=== PATIENT | male | born 1965 | race Caucasian/White ===

== ENCOUNTER 2020-04-27 07:18 | Inpatient (IN) ==
[2020-04-27] MEDS ORDERED: DEXTROSE 50% 25 GM/50 ML VIAL IV PRN ×2 (09:20)
[2020-04-27] MEDS ORDERED: GLUCAGON 1 MG VIAL IM PRN ×2 (09:20)
[2020-04-27 09:57] LABS: Basophils # 0.1 10*3/uL (0.0-0.2); Basophils % 0.9 % (0.0-0.8); Eosinophils # 0.4 10*3/uL (0.0-0.87); Eosinophils % 4.1 % (0.00-10.9); Hematocrit 44.4 VOL% (42.0-52.0); Hemoglobin 14.5 GM/DL (14.0-18.0); Immature Granulocytes % 0.9 %; Immature Granulocytes Absolute 0.09 #; Lymphocytes # 1.5 10*3/uL (1.4-4.0); Lymphocytes % 15.5 % (21.2-54.2); Mean Corpuscular HGB Conc 32.7 GM/DL (32-36); Mean Corpuscular Volume 89.5 FL (87-102); Mean Platelet Volume 12.2 FL (9.6-12.0); Monocytes % 6.8 % (1.7-12.7); Neutrophils % 71.8 % (38.7-73.9); Platelet Count 204 T/CUMM (130-400); Red Blood Count 4.96 MC/CUMM (3.8-5.5); Red Cell Distribution Width 13.1 % (9.3-17.3); White Blood Count 9.7 T/CUMM (4-12)
[2020-04-27] MEDS ORDERED: CLORAZEPATE 3.75 MG TABLET PO PRN (10:20)
[2020-04-27] MEDS ORDERED: NITROGLYCERIN SL 0.4 MG TABLET SL PRN (10:20)
[2020-04-27] MEDS ORDERED: MORPHINE 4 MG/1 ML VIAL IV PRN (10:20)
[2020-04-27 10:23] LABS: Albumin 2.6 G/DL (3.4-5.0); Bilirubin,Total 0.4 MG/DL (0.2-1.0); Calcium 8.2 MG/DL (8.5-10.1); Osmolality,Calculated 286.4 MOS/KG (273-304); Total Protein 6.1 G/DL (6.4-8.2)
[2020-04-27 10:59] LABS: ABG Base Excess 0.3 MMOL/L (-2.5-2.5); ABG HCO3 24.7 MMOL/L (20-26); ABG Oxygen Saturation 96.5 % (95-100); ABG PCO2 41.6 MM HG (35-48); ABG PH 7.393 (7.35-7.45); ABG PO2 86.4 MM HG (80-95); ABG TCO2 21.8 MMOL/L (23-27); Allen Test Positive; Pt O2 Delivery Device Room Air
[2020-04-27] MEDS ORDERED: hydrALAZINE 20 MG/1 ML VIAL IV PRN (13:37)
[2020-04-27] MEDS ORDERED: ZALEPLON 5 MG CAPSULE PO PRN (13:38)
[2020-04-27] MEDS: CHLORHEXIDINE 4% SOLN 118 ML BOTTLE TOP SCH ×2 (14:13→20:53)
[2020-04-27] MEDS: INSULIN REGULAR 100 UNIT/ML SUBCUT SCH ×3 (16:16→21:55)
[2020-04-27] MEDS: CHLORHEXIDINE 0.12% ORAL RINSE 60 ML BOTTLE SWISH/SPIT SCH ×2 (17:24→21:55)
[2020-04-27] MEDS: glipiZIDE 10 MG TABLET PO SCH (20:53)
[2020-04-28] MEDS ORDERED: PAPAVERINE 60 MG/2 ML VIAL ONE (04:21)
[2020-04-28] MEDS ORDERED: VANCOMYCIN 1,000 MG VIAL ONE (04:22)
[2020-04-28] MEDS ORDERED: VANCOMYCIN 500 MG VIAL ONE (04:22)
[2020-04-28] MEDS: CHLORHEXIDINE 4% SOLN 118 ML BOTTLE TOP SCH ×2 (05:00→10:31)
[2020-04-28] MEDS ORDERED: CEFUROXIME INJ 1,500 MG in SYRINGE 1 EACH IV ONE (05:00)
[2020-04-28] MEDS ORDERED: MIDAZOLAM 10 MG/2 ML VIAL ONE (05:46)
[2020-04-28] MEDS ORDERED: SUFentanil 250 MCG/5 ML AMP ONE (05:46)
[2020-04-28] MEDS ORDERED: SUFentanil 50 MCG/ML AMP ONE (05:46)
[2020-04-28 07:47] LABS: ABG Base Excess -0.8 MMOL/L (-2.5-2.5); ABG HCO3 23.8 MMOL/L (20-26); ABG PCO2 36.1 MM HG (35-48); ABG PH 7.417 (7.35-7.45); ABG TCO2 20.3 MMOL/L (23-27); Glucose Heart Surgery 101 MG/DL (74-106); Hematocrit Heart Surgery 39.4 PERCENT (42-52); Hemoglobin Heart Surgery 12.8 G/DL (14.0-18.0); Ionized Calcium Arterial 1.13 MMOL/L (1.21-1.46); PCO2 Patient Temp Arterial 36.1 MMHG; PH Patient Temp Arterial 7.417; Patient Temperature 37 CELCIUS; Potassium Heart/CVR 3.7 MMOL/L (3.5-5.1); Sodium Heart/CVR 139 MMOL/L (135-145)
[2020-04-28] MEDS ORDERED: SODIUM BICARBONATE 50 MEQ/50 ML VIAL IV ONE ×3 (09:19→16:26)
[2020-04-28] MEDS ORDERED: NITROPRUSSIDE 50 MG/2 ML VIAL ONE (09:20)
[2020-04-28] MEDS ORDERED: PHENYLEPHRINE DRIP 40 MG/250 ML PREMIX IV ONE (09:20)
[2020-04-28] MEDS ORDERED: CALCIUM CHLORIDE 1,000 MG/10 ML SYRINGE IV ONE (09:20)
[2020-04-28] MEDS ORDERED: POTASSIUM CHLORIDE RIDER 100 ML IV ONE (09:20)
[2020-04-28] MEDS ORDERED: ALBUMIN 5% 12.5 GM/250 ML VIAL IV ONE (09:21)
[2020-04-28 09:30] LABS: Hematocrit Heart Surgery 26.1 PERCENT (42-52); Hemoglobin Heart Surgery 8.4 G/DL (14.0-18.0); PCO2 Patient Temp Venous 36.9 MM HG; PH Patient Temp Venous 7.405; Potassium Heart/CVR 4.2 MMOL/L (3.5-5.1); VBG Base Excess -1.2 MEQ/L (0-4); VBG HCO3 23.2 MEQ/L (24-28); VBG Oxygen Saturation 83.2 %; VBG PCO2 42.6 MMHG (41-51); VBG PH 7.362; VBG PO2 50.3 MMHG (17-40); VBG Total CO2 22.6 MMOL/L
[2020-04-28 09:31] LABS: Amorphous Crystals,Urine Few /HPF (Few); Bacteria,Urine Moderate /HPF (Few); Bilirubin,Urine Negative (Negative); Blood, Urine Small mg/dL (Negative); Glucose,Urine (UA) >=500 mg/dL (Negative); Ketones,Urine Negative (Negative); Mucus,Urine Occasional /LPF (Occasional); Nitrite,Urine Negative (Negative); Protein,Urine >=500 MG/DL; Urine Appearance Slightly Hazy (Clear); Urine Color Yellow (Yellow); Urine Specific Gravity 1.014 (1.001-1.035); Urine Urobilinogen < 2.0 EU/DL (0.2-1.0); WBC,Urine 4 /HPF (0-6)
[2020-04-28 10:09] LABS: Hematocrit Heart Surgery 26.5 PERCENT (42-52); Hemoglobin Heart Surgery 8.5 G/DL (14.0-18.0); PCO2 Patient Temp Venous 33.8 MM HG; PH Patient Temp Venous 7.437; PO2 Patient Temp Venous 31.3 MM HG; Potassium Heart/CVR 4.3 MMOL/L (3.5-5.1); VBG Base Excess -0.9 MEQ/L (0-4); VBG HCO3 23.3 MEQ/L (24-28); VBG Oxygen Saturation 71.1 %; VBG PCO2 39.1 MMHG (41-51); VBG PH 7.393; VBG PO2 38.6 MMHG (17-40); VBG Total CO2 22.2 MMOL/L
[2020-04-28] MEDS: INSULIN REGULAR 100 UNIT/ML SUBCUT SCH ×2 (10:31→18:19)
[2020-04-28] MEDS: glipiZIDE 10 MG TABLET PO SCH (10:31)
[2020-04-28] MEDS: CHLORHEXIDINE 0.12% ORAL RINSE 60 ML BOTTLE SWISH/SPIT SCH ×2 (10:32→21:06)
[2020-04-28] MEDS: SODIUM CHLORIDE 0.9% 1,000 ML IV SCH (10:32)
[2020-04-28 10:36] LABS: Hematocrit Heart Surgery 26.3 PERCENT (42-52); Hemoglobin Heart Surgery 8.5 G/DL (14.0-18.0); PCO2 Patient Temp Venous 32.2 MM HG; PH Patient Temp Venous 7.446; Potassium Heart/CVR 4.2 MMOL/L (3.5-5.1); VBG Base Excess -1.3 MEQ/L (0-4); VBG Oxygen Saturation 74.3 %; VBG PCO2 37.2 MMHG (41-51); VBG PH 7.402; VBG PO2 40.7 MMHG (17-40); VBG Total CO2 21.6 MMOL/L
[2020-04-28 11:25] LABS: Hematocrit Heart Surgery 27.4 PERCENT (42-52); Hemoglobin Heart Surgery 8.8 G/DL (14.0-18.0); PCO2 Patient Temp Venous 35.9 MM HG; PH Patient Temp Venous 7.394; PO2 Patient Temp Venous 36.6 MM HG; Potassium Heart/CVR 4.5 MMOL/L (3.5-5.1); VBG Base Excess -2.6 MEQ/L (0-4); VBG HCO3 21.8 MEQ/L (24-28); VBG Oxygen Saturation 67.4 %; VBG PCO2 35.9 MMHG (41-51); VBG PH 7.394; VBG PO2 36.6 MMHG (17-40); VBG Total CO2 20.4 MMOL/L
[2020-04-28 12:08] LABS: ABG Base Excess -3.9 MMOL/L (-2.5-2.5); ABG HCO3 21.2 MMOL/L (20-26); ABG Oxygen Saturation 99.9 % (95-100); ABG PCO2 36.9 MM HG (35-48); ABG PH 7.363 (7.35-7.45); ABG TCO2 19.3 MMOL/L (23-27); Glucose Heart Surgery 305 MG/DL (74-106); Hematocrit Heart Surgery 29.2 PERCENT (42-52); Hemoglobin Heart Surgery 9.4 G/DL (14.0-18.0); Ionized Calcium Arterial 1.35 MMOL/L (1.21-1.46); PCO2 Patient Temp Arterial 36.9 MMHG; PH Patient Temp Arterial 7.363; Patient Temperature 37 CELCIUS; Potassium Heart/CVR 3.9 MMOL/L (3.5-5.1); Sodium Heart/CVR 135 MMOL/L (135-145)
[2020-04-28] MEDS ORDERED: ALBUMIN 25% 25 GM/100 ML VIAL IV ONE (12:12)
[2020-04-28] MEDS ORDERED: LIDOCAINE 2% 5 ML VIAL ONE (12:12)
[2020-04-28] MEDS ORDERED: PROTAMINE SULFATE 250 MG/25 ML VIAL IV ONE (12:13)
[2020-04-28] MEDS ORDERED: PROTAMINE SULFATE 50 MG/5 ML VIAL IV ONE (12:13)
[2020-04-28] MEDS ORDERED: MAGNESIUM SULFATE 5 GM/10 ML VIAL IV ONE (12:13)
[2020-04-28] MEDS ORDERED: MANNITOL 100 GM/500 ML BAG IV ONE (12:13)
[2020-04-28] MEDS ORDERED: FUROSEMIDE 20 MG/2 ML VIAL ONE (12:13)
[2020-04-28] MEDS ORDERED: HEPARIN 10,000 UNIT/10 ML VIAL ONE (12:13)
[2020-04-28] MEDS ORDERED: DEXTROSE 5% KCL 20 MEQ 40 MEQ/2,000 ML BAG IV ONE (12:13)
[2020-04-28] MEDS ORDERED: methylPREDNISolone SOD SUC 1,000 MG/8 ML VIAL ONE (12:13)
[2020-04-28] MEDS ORDERED: EPINEPHrine 1 MG/ML VIAL ONE (12:51)
[2020-04-28] MEDS: SODIUM CHLORIDE 0.45% 1,000 ML IV SCH ×2 (13:30)
[2020-04-28] MEDS ORDERED: MORPHINE 10 MG/1 ML VIAL IV PRN (13:56)
[2020-04-28] MEDS ORDERED: INSULIN REGULAR 100 UNIT/ML IV ONE (13:56)
[2020-04-28] MEDS ORDERED: ONDANSETRON 4 MG/2 ML VIAL IV PRN (13:56)
[2020-04-28] MEDS ORDERED: INSULIN REGULAR 100 UNIT/ML IV PRN (13:56)
[2020-04-28] MEDS ORDERED: MORPHINE 4 MG/1 ML VIAL IV PRN (13:56)
[2020-04-28] MEDS ORDERED: PHENYLEPHRINE DRIP 40 MG/250 ML PREMIX IV PRN (13:56)
[2020-04-28] MEDS ORDERED: CALCIUM CHLORIDE 1,000 MG/10 ML SYRINGE IV PRN (13:56)
[2020-04-28] MEDS ORDERED: CHLORHEXIDINE 4% SOLN 118 ML BOTTLE TOP PRN (13:56)
[2020-04-28] MEDS ORDERED: DEXTROSE 50% 25 GM/50 ML VIAL IV PRN ×2 (13:56)
[2020-04-28] MEDS ORDERED: MAGNESIUM SULF RIDER 2 GM in PREMIX 1 EACH IV PRN (13:56)
[2020-04-28] MEDS ORDERED: MAGNESIUM SULF RIDER 4 GM in PREMIX 1 EACH IV PRN (13:56)
[2020-04-28] MEDS ORDERED: ACETAMINOPHEN 650 MG SUPP RECTAL PRN (13:56)
[2020-04-28] MEDS ORDERED: VECURONIUM 10 MG VIAL IV PRN ×2 (13:56)
[2020-04-28] MEDS ORDERED: MIDAZOLAM 10 MG/2 ML VIAL IV PRN (13:56)
[2020-04-28] MEDS ORDERED: FUROSEMIDE 40 MG/4 ML VIAL IV ONE (14:02)
[2020-04-28] MEDS ORDERED: HALOPERIDOL 5 MG/ML AMP IV ONE (14:02)
[2020-04-28 14:04] LABS: ABG Base Excess -3.7 MMOL/L (-2.5-2.5); ABG HCO3 21.3 MMOL/L (20-26); ABG Oxygen Saturation 97.6 % (95-100); ABG PCO2 41.3 MM HG (35-48); ABG PH 7.333 (7.35-7.45); Glucose Heart Surgery 286 MG/DL (74-106); Hematocrit Heart Surgery 32.7 PERCENT (42-52); Hemoglobin Heart Surgery 10.6 G/DL (14.0-18.0); Potassium Heart/CVR 4.1 MMOL/L (3.5-5.1)
[2020-04-28 14:07] LABS: Basophils # 0.1 10*3/uL (0.0-0.2); Basophils % 0.3 % (0.0-0.8); Eosinophils # 0.1 10*3/uL (0.0-0.87); Eosinophils % 0.3 % (0.00-10.9); Hematocrit 31.4 VOL% (42.0-52.0); Hemoglobin 10.3 GM/DL (14.0-18.0); Immature Granulocytes % 1.2 %; Lymphocytes # 0.7 10*3/uL (1.4-4.0); Lymphocytes % 4.2 % (21.2-54.2); Mean Corpuscular HGB Conc 32.8 GM/DL (32-36); Mean Corpuscular Volume 90.8 FL (87-102); Mean Platelet Volume 12.6 FL (9.6-12.0); Monocytes % 6.7 % (1.7-12.7); Neutrophils % 87.3 % (38.7-73.9); Platelet Count 169 T/CUMM (130-400); Red Blood Count 3.46 MC/CUMM (3.8-5.5); Red Cell Distribution Width 13.4 % (9.3-17.3); White Blood Count 16.4 T/CUMM (4-12)
[2020-04-28 14:14] LABS: INR 1.1; PT Patient Result 11.9 SECS (9.8-11.9); Partial Thromboplastin Time 32.7 SECS (23.9-33.8)
[2020-04-28 14:20] LABS: CKMB % 7.2 %
[2020-04-28] MEDS: LACTATED RINGERS 250 ML IV PRN ×4 (14:20→22:03)
[2020-04-28 14:23] LABS: Troponin I 16.3 NG/ML (0.00-0.045)
[2020-04-28 14:35] LABS: Osmolality,Calculated 300.3 MOS/KG (273-304); Potassium 4.3 MMOL/L (3.5-5.1); Total Protein 4.2 G/DL (6.4-8.2)
[2020-04-28 14:41] LABS: Band Neutrophils 4 % (0-10); Lymphocytes 4 % (20-55)
[2020-04-28 14:42] LABS: Segmented Neutrophils 88 % (50-85); Total Cells Counted 100
[2020-04-28 14:43] LABS: Burr Cells Few; Hypochromasia Slight; Microcytosis Slight; Platelet Estimate Normal
[2020-04-28] MEDS: INSULIN REGULAR DRIP 100 ML IV SCH (15:11)
[2020-04-28 15:20] LABS: VBG Base Excess -2.8 MEQ/L (0-4); VBG HCO3 21.5 MEQ/L (24-28); VBG Oxygen Saturation 64.2 %; VBG PCO2 46.6 MMHG (41-51); VBG PH 7.313; VBG PO2 39.1 MMHG (17-40); VBG Total CO2 21.6 MMOL/L
[2020-04-28] MEDS: ALBUMIN 5% 12.5 GM in PREMIX 1 EACH IV PRN ×4 (15:33→21:39)
[2020-04-28] MEDS: FUROSEMIDE INJ 100 MG in SODIUM CHLORIDE 0.9% 90 ML IV SCH (15:34)
[2020-04-28 16:13] LABS: ABG Base Excess -4.2 MMOL/L (-2.5-2.5); ABG Oxygen Saturation 97.4 % (95-100); ABG PCO2 39.5 MM HG (35-48); ABG PH 7.339 (7.35-7.45); ABG TCO2 19.3 MMOL/L (23-27); Glucose Heart Surgery 261 MG/DL (74-106); Hemoglobin Heart Surgery 10.7 G/DL (14.0-18.0); Potassium Heart/CVR 3.9 MMOL/L (3.5-5.1)
[2020-04-28 17:35] LABS: ABG Base Excess -2.2 MMOL/L (-2.5-2.5); ABG HCO3 22.6 MMOL/L (20-26); ABG Oxygen Saturation 97.8 % (95-100); ABG PH 7.359 (7.35-7.45); ABG TCO2 20.9 MMOL/L (23-27); Glucose Heart Surgery 240 MG/DL (74-106); Hematocrit Heart Surgery 33.3 PERCENT (42-52); Hemoglobin Heart Surgery 10.8 G/DL (14.0-18.0); Potassium Heart/CVR 3.7 MMOL/L (3.5-5.1)
[2020-04-28] MEDS: MEPERIDINE 25 MG/1 ML VIAL IV PRN ×2 (18:06→19:17)
[2020-04-28] MEDS: POTASSIUM CHLORIDE RIDER 20 MEQ in PREMIX 1 EACH IV PRN (18:18)
[2020-04-28] MEDS: DEXMEDETOMIDINE 200 MCG in SODIUM CHLORIDE 0.9% 48 ML IV PRN ×2 (20:01→23:27)
[2020-04-28 20:26] LABS: ABG Base Excess -3.2 MMOL/L (-2.5-2.5); ABG HCO3 21.7 MMOL/L (20-26); ABG Oxygen Saturation 95.7 % (95-100); ABG PCO2 40.1 MM HG (35-48); ABG PO2 83.4 MM HG (80-95); ABG TCO2 20.2 MMOL/L (23-27); Glucose Heart Surgery 173 MG/DL (74-106); Hematocrit Heart Surgery 31.1 PERCENT (42-52); Hemoglobin Heart Surgery 10.1 G/DL (14.0-18.0)
[2020-04-28 20:50] LABS: CKMB % 6.5 %
[2020-04-28 20:51] LABS: Troponin I 15.6 NG/ML (0.00-0.045)
[2020-04-28] MEDS: MIDAZOLAM 2 MG/2 ML VIAL IV PRN ×2 (20:56→20:57)
[2020-04-28] MEDS: CEFUROXIME INJ 1,500 MG in SYRINGE 1 EACH IV SCH (21:06)
[2020-04-28 23:06] LABS: ABG Base Excess -1.4 MMOL/L (-2.5-2.5); ABG HCO3 23.2 MMOL/L (20-26); ABG Oxygen Saturation 95.2 % (95-100); ABG PCO2 39.2 MM HG (35-48); ABG PH 7.384 (7.35-7.45); ABG PO2 76.4 MM HG (80-95); ABG TCO2 21.5 MMOL/L (23-27); Glucose Heart Surgery 136 MG/DL (74-106); Hematocrit Heart Surgery 29.6 PERCENT (42-52); Hemoglobin Heart Surgery 9.6 G/DL (14.0-18.0); Potassium Heart/CVR 3.8 MMOL/L (3.5-5.1)
[2020-04-29] MEDS: FUROSEMIDE INJ 100 MG in SODIUM CHLORIDE 0.9% 90 ML IV SCH ×7 (00:09→20:43)
[2020-04-29 00:44] LABS: ABG Base Excess -0.9 MMOL/L (-2.5-2.5); ABG HCO3 23.7 MMOL/L (20-26); ABG Oxygen Saturation 99.1 % (95-100); ABG PCO2 39.7 MM HG (35-48); ABG PH 7.388 (7.35-7.45); ABG TCO2 21.7 MMOL/L (23-27); Glucose Heart Surgery 118 MG/DL (74-106); Hemoglobin Heart Surgery 10.4 G/DL (14.0-18.0); Potassium Heart/CVR 3.8 MMOL/L (3.5-5.1)
[2020-04-29] MEDS: INSULIN REGULAR DRIP 100 ML IV SCH ×2 (00:59→17:15)
[2020-04-29 01:58] LABS: ABG Base Excess -1.1 MMOL/L (-2.5-2.5); ABG HCO3 23.5 MMOL/L (20-26); ABG Oxygen Saturation 96.7 % (95-100); ABG PCO2 38.5 MM HG (35-48); ABG PH 7.394 (7.35-7.45); ABG PO2 85.7 MM HG (80-95); ABG TCO2 21.3 MMOL/L (23-27); Glucose Heart Surgery 106 MG/DL (74-106); Hematocrit Heart Surgery 31.8 PERCENT (42-52); Hemoglobin Heart Surgery 10.3 G/DL (14.0-18.0); Potassium Heart/CVR 3.9 MMOL/L (3.5-5.1)
[2020-04-29 03:50] LABS: ABG Base Excess -1.1 MMOL/L (-2.5-2.5); ABG HCO3 23.5 MMOL/L (20-26); ABG Oxygen Saturation 97.3 % (95-100); ABG PCO2 38.4 MM HG (35-48); ABG PH 7.396 (7.35-7.45); ABG PO2 92.6 MM HG (80-95); ABG TCO2 21.1 MMOL/L (23-27); Glucose Heart Surgery 137 MG/DL (74-106); Hematocrit Heart Surgery 34.6 PERCENT (42-52); Hemoglobin Heart Surgery 11.2 G/DL (14.0-18.0); Potassium Heart/CVR 4.1 MMOL/L (3.5-5.1)
[2020-04-29] MEDS ORDERED: FUROSEMIDE 40 MG/4 ML VIAL IV ONE (03:58)
[2020-04-29 03:59] LABS: Basophils % 0.1 % (0.0-0.8); Hematocrit 31.2 VOL% (42.0-52.0); Hemoglobin 10.1 GM/DL (14.0-18.0); Immature Granulocytes % 0.5 %; Immature Granulocytes Absolute 0.06 #; Lymphocytes # 0.5 10*3/uL (1.4-4.0); Lymphocytes % 4.6 % (21.2-54.2); Mean Corpuscular HGB Conc 32.4 GM/DL (32-36); Mean Corpuscular Volume 90.2 FL (87-102); Mean Platelet Volume 12.9 FL (9.6-12.0); Monocytes % 8.6 % (1.7-12.7); Neutrophils % 86.2 % (38.7-73.9); Red Blood Count 3.46 MC/CUMM (3.8-5.5); Red Cell Distribution Width 13.7 % (9.3-17.3)
[2020-04-29 04:00] LABS: Platelet Count 103 T/CUMM (130-400)
[2020-04-29 04:10] LABS: Albumin 2.5 G/DL (3.4-5.0); Bilirubin,Direct 0.21 MG/DL (0.0-0.20); Bilirubin,Total 0.5 MG/DL (0.2-1.0); Calcium 7.9 MG/DL (8.5-10.1); Osmolality,Calculated 291.5 MOS/KG (273-304); Potassium 4.3 MMOL/L (3.5-5.1); Total Protein 4.7 G/DL (6.4-8.2)
[2020-04-29 04:11] LABS: Band Neutrophils 2 % (0-10); Hypochromasia Slight; Lymphocytes 7 % (20-55); Microcytosis Slight; Platelet Estimate Decreased; Segmented Neutrophils 86 % (50-85); Total Cells Counted 100
[2020-04-29] MEDS: DEXMEDETOMIDINE 200 MCG in SODIUM CHLORIDE 0.9% 48 ML IV PRN ×2 (04:48→08:34)
[2020-04-29 06:39] LABS: ABG Base Excess -2.2 MMOL/L (-2.5-2.5); ABG HCO3 22.5 MMOL/L (20-26); ABG Oxygen Saturation 95.5 % (95-100); ABG PH 7.381 (7.35-7.45); ABG PO2 78.2 MM HG (80-95); ABG TCO2 20.5 MMOL/L (23-27); Glucose Heart Surgery 217 MG/DL (74-106); Hematocrit Heart Surgery 31.7 PERCENT (42-52); Hemoglobin Heart Surgery 10.3 G/DL (14.0-18.0); Potassium Heart/CVR 4.4 MMOL/L (3.5-5.1)
[2020-04-29 07:16] LABS: CKMB % 8.7 %
[2020-04-29] MEDS: MIDAZOLAM 2 MG/2 ML VIAL IV PRN (07:38)
[2020-04-29] MEDS: CEFUROXIME INJ 1,500 MG in SYRINGE 1 EACH IV SCH ×2 (08:41→20:31)
[2020-04-29] MEDS ORDERED: HALOPERIDOL 5 MG/ML AMP IV ONE (09:01)
[2020-04-29 09:25] LABS: ABG HCO3 21.9 MMOL/L (20-26); ABG Oxygen Saturation 95.6 % (95-100); ABG PCO2 36.2 MM HG (35-48); ABG PH 7.383 (7.35-7.45); ABG PO2 80.3 MM HG (80-95); ABG TCO2 19.6 MMOL/L (23-27); Glucose Heart Surgery 246 MG/DL (74-106); Hematocrit Heart Surgery 31.9 PERCENT (42-52); Hemoglobin Heart Surgery 10.3 G/DL (14.0-18.0); Potassium Heart/CVR 4.4 MMOL/L (3.5-5.1)
[2020-04-29 10:39] LABS: ABG Base Excess -6.9 MMOL/L (-2.5-2.5); ABG HCO3 18.7 MMOL/L (20-26); ABG Oxygen Saturation 97.3 % (95-100); ABG PCO2 33.9 MM HG (35-48); ABG PH 7.337 (7.35-7.45); ABG PO2 95.6 MM HG (80-95); ABG TCO2 16.9 MMOL/L (23-27)
[2020-04-29] MEDS: CHLORHEXIDINE 0.12% ORAL RINSE 60 ML BOTTLE SWISH/SPIT SCH ×2 (10:42→20:34)
[2020-04-29] MEDS: INSULIN REGULAR 100 UNIT/ML SUBCUT SCH ×4 (10:43→20:14)
[2020-04-29 11:24] LABS: ABG Base Excess -6.3 MMOL/L (-2.5-2.5); ABG HCO3 18.2 MMOL/L (20-26); ABG Oxygen Saturation 95.9 % (95-100); ABG PCO2 32.3 MM HG (35-48); ABG PH 7.369 (7.35-7.45); ABG PO2 91.8 MM HG (80-95); ABG TCO2 19.2 MMOL/L (23-27)
[2020-04-29] MEDS ORDERED: DEXMEDETOMIDINE 400 MCG in SODIUM CHLORIDE 0.9% 96 ML IV PRN (12:24)
[2020-04-29 14:11] LABS: CKMB % 9.7 %
[2020-04-29 15:34] LABS: ABG Base Excess -1.9 MMOL/L (-2.5-2.5); ABG HCO3 22.2 MMOL/L (20-26); ABG Oxygen Saturation 98.2 % (95-100); ABG PCO2 35.4 MM HG (35-48); ABG PH 7.416 (7.35-7.45); ABG PO2 128.9 MM HG (80-95); ABG TCO2 23.3 MMOL/L (23-27); Glucose Heart Surgery 138 MG/DL (74-106); Hemoglobin Heart Surgery 10.8 G/DL (14.0-18.0); Potassium Heart/CVR 3.9 MMOL/L (3.5-5.1)
[2020-04-29] MEDS: SODIUM CHLORIDE 0.45% 1,000 ML IV SCH ×2 (16:14→16:24)
[2020-04-29] MEDS: ASPIRIN CHEW 81 MG TABLET PO SCH (16:16)
[2020-04-29] MEDS: PANTOPRAZOLE 40 MG VIAL IV SCH (16:16)
[2020-04-29 17:53] LABS: ABG Base Excess -5.3 MMOL/L (-2.5-2.5); ABG Oxygen Saturation 99.3 % (95-100); ABG PCO2 28.9 MM HG (35-48); ABG PH 7.412 (7.35-7.45); ABG TCO2 16.9 MMOL/L (23-27); Glucose Heart Surgery 102 MG/DL (74-106); Hematocrit Heart Surgery 27.9 PERCENT (42-52); Potassium Heart/CVR 3.1 MMOL/L (3.5-5.1)
[2020-04-29] MEDS: POTASSIUM CHLORIDE RIDER 10 MEQ in PREMIX 1 EACH IV PRN (18:00)
[2020-04-29 18:14] LABS: Hematocrit 31.6 VOL% (42.0-52.0); Hemoglobin 10.3 GM/DL (14.0-18.0)
[2020-04-29 20:33] LABS: ABG Base Excess -3.3 MMOL/L (-2.5-2.5); ABG HCO3 21.7 MMOL/L (20-26); ABG Oxygen Saturation 98.8 % (95-100); ABG PCO2 37.1 MM HG (35-48); ABG PH 7.372 (7.35-7.45); ABG TCO2 19.2 MMOL/L (23-27); Glucose Heart Surgery 157 MG/DL (74-106); Hematocrit Heart Surgery 35.5 PERCENT (42-52); Hemoglobin Heart Surgery 11.5 G/DL (14.0-18.0); Potassium Heart/CVR 4.1 MMOL/L (3.5-5.1)
[2020-04-30] MEDS: MEPERIDINE 25 MG/1 ML VIAL IV PRN ×2 (00:18→06:31)
[2020-04-30] MEDS: INSULIN REGULAR 100 UNIT/ML SUBCUT SCH ×7 (00:31→23:54)
[2020-04-30] MEDS: FUROSEMIDE INJ 100 MG in SODIUM CHLORIDE 0.9% 90 ML IV SCH ×9 (00:32→20:24)
[2020-04-30 02:06] LABS: ABG HCO3 22.8 MMOL/L (20-26); ABG Oxygen Saturation 98.2 % (95-100); ABG PCO2 39.3 MM HG (35-48); ABG PH 7.375 (7.35-7.45); ABG TCO2 20.8 MMOL/L (23-27); Glucose Heart Surgery 163 MG/DL (74-106); Hematocrit Heart Surgery 32.2 PERCENT (42-52); Hemoglobin Heart Surgery 10.4 G/DL (14.0-18.0)
[2020-04-30] MEDS ORDERED: HEPARIN/NACL 0.9% 2 UNITS/ML 500 ML IV ONE (04:05)
[2020-04-30 04:35] LABS: Basophils # 0.1 10*3/uL (0.0-0.2); Basophils % 0.3 % (0.0-0.8); Eosinophils % 0.1 % (0.00-10.9); Hematocrit 32.3 VOL% (42.0-52.0); Hemoglobin 10.4 GM/DL (14.0-18.0); Immature Granulocytes % 0.8 %; Immature Granulocytes Absolute 0.15 #; Lymphocytes # 1.6 10*3/uL (1.4-4.0); Lymphocytes % 8.6 % (21.2-54.2); Mean Corpuscular HGB Conc 32.2 GM/DL (32-36); Mean Platelet Volume 13.6 FL (9.6-12.0); Monocytes % 10.1 % (1.7-12.7); Neutrophils % 80.1 % (38.7-73.9); Platelet Count 147 T/CUMM (130-400); Red Blood Count 3.51 MC/CUMM (3.8-5.5); Red Cell Distribution Width 14.5 % (9.3-17.3); White Blood Count 18.5 T/CUMM (4-12)
[2020-04-30 04:49] LABS: Alanine Aminotransferase 54 U/L (16-61); Albumin 2.2 G/DL (3.4-5.0); Alkaline Phosphatase 72 U/L (45-117); Aspartate Amino Transferase 84 U/L (0-37); Bilirubin,Total < 0.39 MG/DL (0.2-1.0); Blood Urea Nitrogen 67 MG/DL (7-18); Calcium 8.1 MG/DL (8.5-10.1); Carbon Dioxide 22 MMOL/L (21-32); Estimated Glom Filtration Rate 25 ML/MIN; Glucose 145 MG/DL (74-106); Osmolality,Calculated 302.3 MOS/KG (273-304); Sodium 141 MMOL/L (136-145); Total Protein 4.9 G/DL (6.4-8.2)
[2020-04-30 04:51] LABS: CKMB % 11.4 %
[2020-04-30 04:55] LABS: Troponin I 17.7 NG/ML (0.00-0.045)
[2020-04-30 05:13] LABS: Hypochromasia Slight; Microcytosis 1+; Platelet Estimate Adequate
[2020-04-30] MEDS ORDERED: AMIODARONE INJ 150 MG in DEXTROSE 5% 100 ML IV ONE (07:49)
[2020-04-30] MEDS ORDERED: AMIODARONE 150 MG/3 ML VIAL ONE ×2 (07:51→15:40)
[2020-04-30] MEDS ORDERED: AMIODARONE INJ 450 MG in DEXTROSE 5% 241 ML IV SCH (08:00)
[2020-04-30] MEDS: HALOPERIDOL 5 MG/ML AMP IV PRN ×2 (08:35→20:08)
[2020-04-30] MEDS: ASPIRIN CHEW 81 MG TABLET PO SCH (09:00)
[2020-04-30] MEDS: CHLORHEXIDINE 0.12% ORAL RINSE 60 ML BOTTLE SWISH/SPIT SCH ×2 (09:00→20:53)
[2020-04-30] MEDS: PANTOPRAZOLE 40 MG VIAL IV SCH (09:00)
[2020-04-30] MEDS: METOPROLOL TARTRATE 25 MG TABLET PO SCH ×2 (10:47→20:52)
[2020-04-30 10:50] LABS: ABG HCO3 21.9 MMOL/L (20-26); ABG Oxygen Saturation 99.1 % (95-100); ABG PCO2 37.9 MM HG (35-48); Glucose Heart Surgery 212 MG/DL (74-106); Hematocrit Heart Surgery 31.1 PERCENT (42-52); Potassium Heart/CVR 4.2 MMOL/L (3.5-5.1)
[2020-04-30] MEDS: CEFUROXIME INJ 1,500 MG in SYRINGE 1 EACH IV SCH (12:56)
[2020-04-30 13:01] LABS: Bacteria,Urine Occasional /HPF (Few); Bilirubin,Urine Negative (Negative); Blood, Urine Small mg/dL (Negative); Glucose,Urine (UA) 50 mg/dL (Negative); Hyaline Casts,Urine 9 /LPF (0-3); Ketones,Urine Negative (Negative); Mucus,Urine Occasional /LPF (Occasional); Nitrite,Urine Negative (Negative); Protein,Urine 100 MG/DL; RBC,Urine 7 /HPF (0-4); Urine Appearance Slightly Hazy (Clear); Urine Color Yellow (Yellow); Urine Specific Gravity 1.019 (1.001-1.035); Urine Urobilinogen < 2.0 EU/DL (0.2-1.0); WBC,Urine 10 /HPF (0-6)
[2020-04-30] MEDS: INSULIN REGULAR DRIP 100 ML IV SCH (14:40)
[2020-04-30] MEDS: SODIUM CHLORIDE 0.45% 1,000 ML IV SCH (15:33)
[2020-04-30] MEDS ORDERED: FUROSEMIDE 40 MG/4 ML VIAL ONE (15:40)
[2020-04-30] MEDS: AMIODARONE INJ 450 MG in DEXTROSE 5% 241 ML IV SCH (15:45)
[2020-04-30] MEDS ORDERED: FUROSEMIDE 40 MG/4 ML VIAL IV ONE (15:46)
[2020-04-30] MEDS ORDERED: AMIODARONE INJ 50 MG in DEXTROSE 5% 100 ML IV ONE (15:46)
[2020-05-01] MEDS: MEPERIDINE 25 MG/1 ML VIAL IV PRN ×4 (00:06→06:20)
[2020-05-01] MEDS: CEFUROXIME INJ 1,500 MG in SYRINGE 1 EACH IV SCH ×2 (00:56→12:42)
[2020-05-01] MEDS: FUROSEMIDE INJ 100 MG in SODIUM CHLORIDE 0.9% 90 ML IV SCH ×7 (00:59→22:50)
[2020-05-01 04:21] LABS: ABG Base Excess -3.7 MMOL/L (-2.5-2.5); ABG HCO3 21.4 MMOL/L (20-26); ABG Oxygen Saturation 99.1 % (95-100); ABG PCO2 38.2 MM HG (35-48); ABG PH 7.356 (7.35-7.45); ABG TCO2 19.3 MMOL/L (23-27); Glucose Heart Surgery 168 MG/DL (74-106); Hematocrit Heart Surgery 34.3 PERCENT (42-52); Hemoglobin Heart Surgery 11.1 G/DL (14.0-18.0); Potassium Heart/CVR 3.5 MMOL/L (3.5-5.1)
[2020-05-01] MEDS: AMIODARONE INJ 450 MG in DEXTROSE 5% 241 ML IV SCH ×3 (04:22→23:24)
[2020-05-01] MEDS: INSULIN REGULAR 100 UNIT/ML SUBCUT SCH ×5 (04:22→20:31)
[2020-05-01 04:25] LABS: Basophils # 0.1 10*3/uL (0.0-0.2); Basophils % 0.4 % (0.0-0.8); Eosinophils # 0.1 10*3/uL (0.0-0.87); Eosinophils % 0.5 % (0.00-10.9); Hematocrit 29.5 VOL% (42.0-52.0); Hemoglobin 9.4 GM/DL (14.0-18.0); Immature Granulocytes % 0.6 %; Immature Granulocytes Absolute 0.07 #; Lymphocytes # 1.3 10*3/uL (1.4-4.0); Lymphocytes % 11.4 % (21.2-54.2); Mean Corpuscular HGB Conc 31.9 GM/DL (32-36); Mean Corpuscular Volume 92.8 FL (87-102); Mean Platelet Volume 13.6 FL (9.6-12.0); Monocytes % 9.6 % (1.7-12.7); Neutrophils % 77.5 % (38.7-73.9); Platelet Count 99 T/CUMM (130-400); Red Blood Count 3.18 MC/CUMM (3.8-5.5); Red Cell Distribution Width 14.5 % (9.3-17.3); White Blood Count 11.6 T/CUMM (4-12)
[2020-05-01] MEDS: POTASSIUM CHLORIDE RIDER 20 MEQ in PREMIX 1 EACH IV PRN ×2 (04:37→12:43)
[2020-05-01 04:50] LABS: Albumin 2.2 G/DL (3.4-5.0); Bilirubin,Direct 0.14 MG/DL (0.0-0.20); Bilirubin,Total 0.4 MG/DL (0.2-1.0); Calcium 7.4 MG/DL (8.5-10.1); Potassium 3.7 MMOL/L (3.5-5.1); Total Protein 4.4 G/DL (6.4-8.2)
[2020-05-01 04:55] LABS: CKMB % 7.4 %
[2020-05-01 04:57] LABS: Troponin I 17.9 NG/ML (0.00-0.045)
[2020-05-01 06:15] LABS: Microcytosis 1+; Ovalocytes Few; Platelet Estimate Adequate
[2020-05-01] MEDS ORDERED: NITROPRUSSIDE 50 MG/2 ML VIAL ONE (06:31)
[2020-05-01] MEDS: NITROPRUSSIDE 100 MG in DEXTROSE 5% 250 ML IV PRN (06:39)
[2020-05-01 07:05] LABS: ABG Base Excess -3.7 MMOL/L (-2.5-2.5); ABG HCO3 21.3 MMOL/L (20-26); ABG Oxygen Saturation 96.7 % (95-100); ABG PCO2 40.9 MM HG (35-48); ABG PH 7.336 (7.35-7.45); ABG PO2 97.1 MM HG (80-95); Glucose Heart Surgery 150 MG/DL (74-106); Hematocrit Heart Surgery 31.9 PERCENT (42-52); Hemoglobin Heart Surgery 10.3 G/DL (14.0-18.0); Potassium Heart/CVR 3.8 MMOL/L (3.5-5.1)
[2020-05-01] MEDS: HALOPERIDOL 5 MG/ML AMP IV PRN (07:38)
[2020-05-01 07:45] LABS: ABG HCO3 21.1 MMOL/L (20-26); ABG Oxygen Saturation 95.8 % (95-100); ABG PCO2 42.7 MM HG (35-48); ABG PO2 91.1 MM HG (80-95); ABG TCO2 20.1 MMOL/L (23-27); Glucose Heart Surgery 150 MG/DL (74-106); Hematocrit Heart Surgery 31.3 PERCENT (42-52); Hemoglobin Heart Surgery 10.1 G/DL (14.0-18.0); Potassium Heart/CVR 3.7 MMOL/L (3.5-5.1)
[2020-05-01] MEDS ORDERED: ETOMIDATE 20 MG/10 ML VIAL IV ONE ×2 (08:05→08:09)
[2020-05-01] MEDS ORDERED: SUCCINYLCHOLINE 200 MG/10 ML VIAL ONE (08:07)
[2020-05-01] MEDS ORDERED: SUCCINYLCHOLINE 200 MG/10 ML VIAL IV ONE (08:09)
[2020-05-01] MEDS: ASPIRIN CHEW 81 MG TABLET PO SCH (09:11)
[2020-05-01] MEDS: METOPROLOL TARTRATE 25 MG TABLET PO SCH ×2 (09:11→20:31)
[2020-05-01] MEDS: CHLORHEXIDINE 0.12% ORAL RINSE 60 ML BOTTLE SWISH/SPIT SCH ×2 (09:11→20:32)
[2020-05-01] MEDS: PANTOPRAZOLE 40 MG VIAL IV SCH (09:11)
[2020-05-01] MEDS: ALBUTEROL/IPRATROPIUM 3 ML NEB RESP TX SCH ×4 (11:27→23:28)
[2020-05-01 12:22] LABS: ABG Base Excess -3.8 MMOL/L (-2.5-2.5); ABG HCO3 21.3 MMOL/L (20-26); ABG Oxygen Saturation 99.5 % (95-100); ABG PCO2 32.3 MM HG (35-48); ABG PH 7.402 (7.35-7.45); Glucose Heart Surgery 166 MG/DL (74-106); Hematocrit Heart Surgery 34.7 PERCENT (42-52); Hemoglobin Heart Surgery 11.2 G/DL (14.0-18.0); Potassium Heart/CVR 3.6 MMOL/L (3.5-5.1)
[2020-05-01] MEDS: INSULIN REGULAR DRIP 100 ML IV SCH (14:27)
[2020-05-01] MEDS: SODIUM CHLORIDE 0.45% 1,000 ML IV SCH (15:13)
[2020-05-01] MEDS ORDERED: HEPARIN/NACL 0.9% 2 UNITS/ML 500 ML IV ONE (17:07)
[2020-05-02] MEDS: INSULIN REGULAR 100 UNIT/ML SUBCUT SCH ×6 (00:10→20:34)
[2020-05-02] MEDS: CEFUROXIME INJ 1,500 MG in SYRINGE 1 EACH IV SCH ×2 (00:11→12:46)
[2020-05-02 03:34] LABS: Basophils # 0.1 10*3/uL (0.0-0.2); Basophils % 0.4 % (0.0-0.8); Eosinophils # 0.4 10*3/uL (0.0-0.87); Eosinophils % 3.3 % (0.00-10.9); Hematocrit 29.3 VOL% (42.0-52.0); Hemoglobin 9.5 GM/DL (14.0-18.0); Immature Granulocytes % 0.8 %; Lymphocytes % 8.2 % (21.2-54.2); Mean Corpuscular HGB Conc 32.4 GM/DL (32-36); Mean Corpuscular Volume 92.1 FL (87-102); Mean Platelet Volume 13.5 FL (9.6-12.0); Monocytes % 9.6 % (1.7-12.7); Neutrophils % 77.7 % (38.7-73.9); Platelet Count 118 T/CUMM (130-400); Red Blood Count 3.18 MC/CUMM (3.8-5.5); White Blood Count 12.1 T/CUMM (4-12)
[2020-05-02 03:35] LABS: ABG Base Excess -2.4 MMOL/L (-2.5-2.5); ABG HCO3 22.5 MMOL/L (20-26); ABG Oxygen Saturation 98.7 % (95-100); ABG PCO2 37.2 MM HG (35-48); ABG PH 7.383 (7.35-7.45); ABG TCO2 18.3 MMOL/L (23-27); Glucose Heart Surgery 169 MG/DL (74-106); Hematocrit Heart Surgery 52.4 PERCENT (42-52); Hemoglobin Heart Surgery 17.1 G/DL (14.0-18.0); Potassium Heart/CVR 3.4 MMOL/L (3.5-5.1)
[2020-05-02] MEDS: FUROSEMIDE INJ 100 MG in SODIUM CHLORIDE 0.9% 90 ML IV SCH ×4 (03:54→16:21)
[2020-05-02 04:18] LABS: Albumin 2.2 G/DL (3.4-5.0); Bilirubin,Total 0.5 MG/DL (0.2-1.0); CKMB % 5.6 %; Calcium 7.9 MG/DL (8.5-10.1); Osmolality,Calculated 304.4 MOS/KG (273-304); Potassium 3.4 MMOL/L (3.5-5.1); Total Protein 5.3 G/DL (6.4-8.2)
[2020-05-02 04:27] LABS: Troponin I 12.3 NG/ML (0.00-0.045)
[2020-05-02] MEDS: ALBUTEROL/IPRATROPIUM 3 ML NEB RESP TX SCH ×6 (04:30→23:30)
[2020-05-02] MEDS: POTASSIUM CHLORIDE RIDER 20 MEQ in PREMIX 1 EACH IV PRN ×5 (04:39→20:34)
[2020-05-02] MEDS ORDERED: AMIODARONE INJ 100 MG in DEXTROSE 5% 100 ML IV ONE (05:21)
[2020-05-02] MEDS: MEPERIDINE 25 MG/1 ML VIAL IV PRN (06:03)
[2020-05-02] MEDS: ASPIRIN CHEW 81 MG TABLET PO SCH (08:07)
[2020-05-02] MEDS: CHLORHEXIDINE 0.12% ORAL RINSE 60 ML BOTTLE SWISH/SPIT SCH ×2 (08:08→20:36)
[2020-05-02] MEDS: PANTOPRAZOLE 40 MG VIAL IV SCH (08:08)
[2020-05-02] MEDS: METOPROLOL TARTRATE 25 MG TABLET PO SCH ×2 (08:08→20:35)
[2020-05-02] MEDS ORDERED: METOPROLOL TARTRATE 25 MG TABLET PO ONE (08:16)
[2020-05-02] MEDS ORDERED: CLORAZEPATE 3.75 MG TABLET PO PRN (08:17)
[2020-05-02] MEDS: POTASSIUM CHLORIDE RIDER 10 MEQ in PREMIX 1 EACH IV PRN ×2 (08:51→21:06)
[2020-05-02] MEDS: CLORAZEPATE 3.75 MG TABLET PO SCH ×3 (10:53→22:02)
[2020-05-02 11:13] LABS: ABG Base Excess -3.3 MMOL/L (-2.5-2.5); ABG HCO3 21.7 MMOL/L (20-26); ABG Oxygen Saturation 97.5 % (95-100); ABG PCO2 35.8 MM HG (35-48); ABG PH 7.383 (7.35-7.45); ABG PO2 99.6 MM HG (80-95); ABG TCO2 19.5 MMOL/L (23-27); Glucose Heart Surgery 213 MG/DL (74-106); Hematocrit Heart Surgery 29.9 PERCENT (42-52); Hemoglobin Heart Surgery 9.7 G/DL (14.0-18.0); Potassium Heart/CVR 3.9 MMOL/L (3.5-5.1)
[2020-05-02] MEDS: SODIUM CHLORIDE 0.45% 1,000 ML IV SCH (14:36)
[2020-05-02] MEDS ORDERED: NITROPRUSSIDE 50 MG/2 ML VIAL ONE (14:57)
[2020-05-02] MEDS: NITROPRUSSIDE 100 MG in DEXTROSE 5% 250 ML IV PRN (15:03)
[2020-05-02] MEDS: AMIODARONE INJ 450 MG in DEXTROSE 5% 241 ML IV SCH (16:37)
[2020-05-02] MEDS: ATORVASTATIN 40 MG TABLET PO SCH (20:35)
[2020-05-03] MEDS: INSULIN REGULAR 100 UNIT/ML SUBCUT SCH ×6 (00:25→20:49)
[2020-05-03] MEDS: CEFUROXIME INJ 1,500 MG in SYRINGE 1 EACH IV SCH ×2 (00:39→12:27)
[2020-05-03 00:40] LABS: VBG Base Excess -1.8 MEQ/L (0-4); VBG HCO3 22.9 MEQ/L (24-28); VBG Oxygen Saturation 96.2 %; VBG PCO2 38.8 MMHG (41-51); VBG PH 7.381; VBG PO2 87.3 MMHG (17-40); VBG Total CO2 21.1 MMOL/L
[2020-05-03] MEDS: POTASSIUM CHLORIDE RIDER 20 MEQ in PREMIX 1 EACH IV PRN ×3 (01:08→10:47)
[2020-05-03 01:29] LABS: VBG Base Excess -1.4 MEQ/L (0-4); VBG HCO3 23.2 MEQ/L (24-28); VBG PH 7.363
[2020-05-03] MEDS: ALBUTEROL/IPRATROPIUM 3 ML NEB RESP TX SCH ×6 (03:12→23:26)
[2020-05-03 03:58] LABS: ABG Base Excess -0.6 MMOL/L (-2.5-2.5); ABG HCO3 23.5 MMOL/L (20-26); ABG Oxygen Saturation 98.6 % (95-100); ABG PCO2 36.5 MM HG (35-48); ABG PH 7.426 (7.35-7.45); ABG PO2 163.4 MM HG (80-95); ABG TCO2 24.6 MMOL/L (23-27); Glucose Heart Surgery 183 MG/DL (74-106); Potassium Heart/CVR 3.8 MMOL/L (3.5-5.1)
[2020-05-03] MEDS: MEPERIDINE 25 MG/1 ML VIAL IV PRN ×2 (03:58→19:35)
[2020-05-03] MEDS: FUROSEMIDE INJ 100 MG in SODIUM CHLORIDE 0.9% 90 ML IV SCH ×2 (04:06→22:16)
[2020-05-03 04:11] LABS: Basophils # 0.1 10*3/uL (0.0-0.2); Basophils % 0.4 % (0.0-0.8); Eosinophils # 0.5 10*3/uL (0.0-0.87); Eosinophils % 3.6 % (0.00-10.9); Hematocrit 28.4 VOL% (42.0-52.0); Hemoglobin 9.4 GM/DL (14.0-18.0); Immature Granulocytes % 0.6 %; Immature Granulocytes Absolute 0.08 #; Lymphocytes # 0.8 10*3/uL (1.4-4.0); Mean Corpuscular HGB Conc 33.1 GM/DL (32-36); Mean Corpuscular Volume 89.9 FL (87-102); Monocytes % 10.3 % (1.7-12.7); Neutrophils % 79.1 % (38.7-73.9); Platelet Count 119 T/CUMM (130-400); Red Blood Count 3.16 MC/CUMM (3.8-5.5); Red Cell Distribution Width 14.1 % (9.3-17.3); White Blood Count 12.9 T/CUMM (4-12)
[2020-05-03] MEDS: CLORAZEPATE 3.75 MG TABLET PO SCH ×4 (04:21→21:48)
[2020-05-03 04:25] LABS: Bilirubin,Total 0.4 MG/DL (0.2-1.0); Calcium 7.6 MG/DL (8.5-10.1); Osmolality,Calculated 305.3 MOS/KG (273-304); Potassium 3.9 MMOL/L (3.5-5.1); Total Protein 4.7 G/DL (6.4-8.2)
[2020-05-03 04:26] LABS: CKMB % 2.6 %
[2020-05-03 04:27] LABS: Troponin I 7.7 NG/ML (0.00-0.045)
[2020-05-03 05:18] LABS: Hypochromasia 1+; Microcytosis 1+
[2020-05-03] MEDS: POTASSIUM CHLORIDE RIDER 10 MEQ in PREMIX 1 EACH IV PRN ×2 (05:18→12:26)
[2020-05-03] MEDS: AMIODARONE INJ 450 MG in DEXTROSE 5% 241 ML IV SCH ×3 (05:47→17:00)
[2020-05-03] MEDS: LEVOTHYROXINE 75 MCG TABLET PO SCH (05:52)
[2020-05-03] MEDS: PANTOPRAZOLE 40 MG VIAL IV SCH (08:01)
[2020-05-03] MEDS: ENOXAPARIN 40 MG/0.4 ML SYRINGE SUBCUT SCH ×2 (08:01→18:07)
[2020-05-03] MEDS: METOPROLOL TARTRATE 25 MG TABLET PO SCH ×2 (08:01→21:48)
[2020-05-03] MEDS: ASPIRIN CHEW 81 MG TABLET PO SCH (08:01)
[2020-05-03] MEDS: CHLORHEXIDINE 0.12% ORAL RINSE 60 ML BOTTLE SWISH/SPIT SCH ×2 (08:09→21:48)
[2020-05-03 08:49] LABS: Basophils # 0.1 10*3/uL (0.0-0.2); Basophils % 0.4 % (0.0-0.8); Eosinophils # 0.5 10*3/uL (0.0-0.87); Eosinophils % 3.8 % (0.00-10.9); Hematocrit 27.3 VOL% (42.0-52.0); Hemoglobin 8.6 GM/DL (14.0-18.0); Immature Granulocytes % 0.6 %; Immature Granulocytes Absolute 0.07 #; Lymphocytes # 0.7 10*3/uL (1.4-4.0); Lymphocytes % 6.1 % (21.2-54.2); Mean Corpuscular HGB Conc 31.5 GM/DL (32-36); Mean Corpuscular Volume 93.2 FL (87-102); Mean Platelet Volume 12.7 FL (9.6-12.0); Monocytes % 10.3 % (1.7-12.7); Neutrophils % 78.8 % (38.7-73.9); Platelet Count 119 T/CUMM (130-400); Red Blood Count 2.93 MC/CUMM (3.8-5.5); Red Cell Distribution Width 14.3 % (9.3-17.3); White Blood Count 12.1 T/CUMM (4-12)
[2020-05-03 10:08] LABS: ABG Base Excess -1.5 MMOL/L (-2.5-2.5); ABG HCO3 23.2 MMOL/L (20-26); ABG Oxygen Saturation 98.5 % (95-100); ABG PCO2 42.9 MM HG (35-48); ABG PH 7.359 (7.35-7.45); ABG TCO2 20.7 MMOL/L (23-27); Glucose Heart Surgery 199 MG/DL (74-106); Hematocrit Heart Surgery 45.5 PERCENT (42-52); Hemoglobin Heart Surgery 14.9 G/DL (14.0-18.0); Potassium Heart/CVR 3.7 MMOL/L (3.5-5.1)
[2020-05-03 14:44] LABS: ABG Base Excess -0.5 MMOL/L (-2.5-2.5); ABG Oxygen Saturation 98.2 % (95-100); ABG PCO2 39.8 MM HG (35-48); ABG PH 7.393 (7.35-7.45); ABG TCO2 22.2 MMOL/L (23-27); Glucose Heart Surgery 183 MG/DL (74-106); Hematocrit Heart Surgery 30.1 PERCENT (42-52); Hemoglobin Heart Surgery 9.7 G/DL (14.0-18.0); Potassium Heart/CVR 4.1 MMOL/L (3.5-5.1)
[2020-05-03] MEDS: SODIUM CHLORIDE 0.45% 1,000 ML IV SCH (15:29)
[2020-05-03] MEDS ORDERED: NITROPRUSSIDE 50 MG/2 ML VIAL ONE (16:15)
[2020-05-03 16:20] LABS: ABG Base Excess -2.4 MMOL/L (-2.5-2.5); ABG HCO3 22.4 MMOL/L (20-26); ABG Oxygen Saturation 96.2 % (95-100); ABG PCO2 50.7 MM HG (35-48); ABG PH 7.302 (7.35-7.45); ABG TCO2 21.1 MMOL/L (23-27); Glucose Heart Surgery 175 MG/DL (74-106); Hematocrit Heart Surgery 51.5 PERCENT (42-52); Hemoglobin Heart Surgery 16.8 G/DL (14.0-18.0); Potassium Heart/CVR 4.1 MMOL/L (3.5-5.1)
[2020-05-03] MEDS: NITROPRUSSIDE 100 MG in DEXTROSE 5% 250 ML IV PRN (16:22)
[2020-05-03 17:00] LABS: ABG Base Excess -2.7 MMOL/L (-2.5-2.5); ABG HCO3 22.1 MMOL/L (20-26); ABG Oxygen Saturation 96.6 % (95-100); ABG PCO2 49.3 MM HG (35-48); ABG PH 7.302 (7.35-7.45); ABG TCO2 21.2 MMOL/L (23-27); Glucose Heart Surgery 180 MG/DL (74-106); Hematocrit Heart Surgery 44.5 PERCENT (42-52); Hemoglobin Heart Surgery 14.5 G/DL (14.0-18.0); Potassium Heart/CVR 4.2 MMOL/L (3.5-5.1)
[2020-05-03 18:21] LABS: ABG Base Excess -2.2 MMOL/L (-2.5-2.5); ABG HCO3 22.5 MMOL/L (20-26); ABG Oxygen Saturation 91.8 % (95-100); ABG PCO2 44.8 MM HG (35-48); ABG PH 7.332 (7.35-7.45); ABG PO2 70.6 MM HG (80-95); ABG TCO2 21.8 MMOL/L (23-27); Glucose Heart Surgery 177 MG/DL (74-106); Hematocrit Heart Surgery 30.5 PERCENT (42-52); Hemoglobin Heart Surgery 9.9 G/DL (14.0-18.0); Potassium Heart/CVR 4.2 MMOL/L (3.5-5.1)
[2020-05-03 19:54] LABS: ABG Base Excess -3.3 MMOL/L (-2.5-2.5); ABG HCO3 21.6 MMOL/L (20-26); ABG Oxygen Saturation 92.9 % (95-100); ABG PCO2 47.8 MM HG (35-48); ABG PH 7.297 (7.35-7.45); ABG PO2 78.2 MM HG (80-95); ABG TCO2 21.5 MMOL/L (23-27); Glucose Heart Surgery 185 MG/DL (74-106); Potassium Heart/CVR 4.3 MMOL/L (3.5-5.1)
[2020-05-03 21:23] LABS: ABG Base Excess -3.4 MMOL/L (-2.5-2.5); ABG HCO3 21.5 MMOL/L (20-26); ABG Oxygen Saturation 95.3 % (95-100); ABG PH 7.348 (7.35-7.45); ABG PO2 83.6 MM HG (80-95); ABG TCO2 20.1 MMOL/L (23-27); Glucose Heart Surgery 196 MG/DL (74-106); Hematocrit Heart Surgery 30.8 PERCENT (42-52); Hemoglobin Heart Surgery 9.9 G/DL (14.0-18.0); Potassium Heart/CVR 4.2 MMOL/L (3.5-5.1)
[2020-05-03] MEDS: ATORVASTATIN 40 MG TABLET PO SCH (21:48)
[2020-05-04] MEDS: INSULIN REGULAR 100 UNIT/ML SUBCUT SCH ×6 (00:44→20:28)
[2020-05-04] MEDS: MEPERIDINE 25 MG/1 ML VIAL IV PRN (01:13)
[2020-05-04] MEDS: CEFUROXIME INJ 1,500 MG in SYRINGE 1 EACH IV SCH ×3 (01:17→23:57)
[2020-05-04] MEDS: ALBUTEROL/IPRATROPIUM 3 ML NEB RESP TX SCH ×5 (02:49→19:26)
[2020-05-04 03:39] LABS: ABG Base Excess -1.7 MMOL/L (-2.5-2.5); ABG HCO3 22.1 MMOL/L (20-26); ABG Oxygen Saturation 92.7 % (95-100); ABG PCO2 33.6 MM HG (35-48); ABG PH 7.436 (7.35-7.45); ABG PO2 69.6 MM HG (80-95); ABG TCO2 23.1 MMOL/L (23-27); Glucose Heart Surgery 153 MG/DL (74-106); Hemoglobin Heart Surgery 9.7 G/DL (14.0-18.0); Potassium Heart/CVR 3.9 MMOL/L (3.5-5.1)
[2020-05-04 03:41] LABS: Basophils # 0.1 10*3/uL (0.0-0.2); Basophils % 0.4 % (0.0-0.8); Eosinophils # 0.5 10*3/uL (0.0-0.87); Eosinophils % 3.7 % (0.00-10.9); Hematocrit 28.9 VOL% (42.0-52.0); Hemoglobin 9.1 GM/DL (14.0-18.0); Immature Granulocytes % 0.8 %; Immature Granulocytes Absolute 0.11 #; Lymphocytes # 0.7 10*3/uL (1.4-4.0); Lymphocytes % 5.2 % (21.2-54.2); Mean Corpuscular HGB Conc 31.5 GM/DL (32-36); Mean Corpuscular Volume 93.5 FL (87-102); Mean Platelet Volume 12.8 FL (9.6-12.0); Neutrophils % 80.9 % (38.7-73.9); Platelet Count 158 T/CUMM (130-400); Red Blood Count 3.09 MC/CUMM (3.8-5.5); Red Cell Distribution Width 14.3 % (9.3-17.3); White Blood Count 13.4 T/CUMM (4-12)
[2020-05-04 04:04] LABS: Alanine Aminotransferase 35 U/L (16-61); Alkaline Phosphatase 138 U/L (45-117); Aspartate Amino Transferase 28 U/L (0-37); Blood Urea Nitrogen 60 MG/DL (7-18); Calcium 7.8 MG/DL (8.5-10.1); Carbon Dioxide 23 MMOL/L (21-32); Estimated Glom Filtration Rate 37 ML/MIN; Glucose 150 MG/DL (74-106); Sodium 143 MMOL/L (136-145); Total Protein 5.6 G/DL (6.4-8.2)
[2020-05-04] MEDS: CLORAZEPATE 3.75 MG TABLET PO SCH ×4 (04:05→23:57)
[2020-05-04] MEDS: AMIODARONE INJ 450 MG in DEXTROSE 5% 241 ML IV SCH ×3 (04:48→22:33)
[2020-05-04] MEDS: POTASSIUM CHLORIDE RIDER 10 MEQ in PREMIX 1 EACH IV PRN (05:27)
[2020-05-04] MEDS: LEVOTHYROXINE 75 MCG TABLET PO SCH (06:08)
[2020-05-04] MEDS: ENOXAPARIN 40 MG/0.4 ML SYRINGE SUBCUT SCH ×2 (06:08→17:38)
[2020-05-04] MEDS: ASPIRIN CHEW 81 MG TABLET PO SCH (08:01)
[2020-05-04] MEDS: METOPROLOL TARTRATE 25 MG TABLET PO SCH ×2 (08:01→20:28)
[2020-05-04] MEDS: PANTOPRAZOLE 40 MG VIAL IV SCH (08:01)
[2020-05-04] MEDS: HALOPERIDOL 5 MG/ML AMP IV PRN (08:10)
[2020-05-04] MEDS: CHLORHEXIDINE 0.12% ORAL RINSE 60 ML BOTTLE SWISH/SPIT SCH ×2 (09:00→20:28)
[2020-05-04] MEDS: ISOSORBIDE MONONITRATE 30 MG TABLET PO SCH (09:31)
[2020-05-04] MEDS: FUROSEMIDE 40 MG TABLET PO SCH (09:31)
[2020-05-04] MEDS ORDERED: ACETAMINOPHEN 325 MG TABLET PO PRN (10:12)
[2020-05-04] MEDS: methylPREDNISolone SOD SUC 125 MG/2 ML VIAL IV SCH ×3 (10:37→22:33)
[2020-05-04] MEDS: SODIUM CHLORIDE 0.45% 1,000 ML IV SCH (16:50)
[2020-05-04] MEDS: ATORVASTATIN 40 MG TABLET PO SCH (20:28)
[2020-05-05] MEDS: ALBUTEROL/IPRATROPIUM 3 ML NEB RESP TX SCH ×7 (00:25→23:40)
[2020-05-05] MEDS: HALOPERIDOL 5 MG/ML AMP IV PRN ×2 (01:56→23:00)
[2020-05-05 03:53] LABS: Basophils % 0.2 % (0.0-0.8); Hematocrit 30.4 VOL% (42.0-52.0); Hemoglobin 9.6 GM/DL (14.0-18.0); Immature Granulocytes % 2.1 %; Immature Granulocytes Absolute 0.22 #; Lymphocytes # 0.3 10*3/uL (1.4-4.0); Mean Corpuscular HGB Conc 31.6 GM/DL (32-36); Mean Corpuscular Volume 93.5 FL (87-102); Mean Platelet Volume 12.1 FL (9.6-12.0); Neutrophils % 91.7 % (38.7-73.9); Platelet Count 194 T/CUMM (130-400); Red Blood Count 3.25 MC/CUMM (3.8-5.5); Red Cell Distribution Width 14.2 % (9.3-17.3); White Blood Count 10.5 T/CUMM (4-12)
[2020-05-05 04:14] LABS: Hypochromasia 1+; Lymphocytes 5 % (20-55); Segmented Neutrophils 91 % (50-85); Total Cells Counted 100
[2020-05-05 04:15] LABS: Microcytosis 1+
[2020-05-05 04:17] LABS: Albumin 2.2 G/DL (3.4-5.0); Bilirubin,Total 0.6 MG/DL (0.2-1.0); Calcium 8.3 MG/DL (8.5-10.1); Osmolality,Calculated 310.3 MOS/KG (273-304); Potassium 4.5 MMOL/L (3.5-5.1); Total Protein 6.3 G/DL (6.4-8.2)
[2020-05-05] MEDS: methylPREDNISolone SOD SUC 125 MG/2 ML VIAL IV SCH ×4 (04:56→22:05)
[2020-05-05] MEDS: CLORAZEPATE 3.75 MG TABLET PO SCH (04:56)
[2020-05-05] MEDS: MEPERIDINE 25 MG/1 ML VIAL IV PRN (05:55)
[2020-05-05] MEDS: LEVOTHYROXINE 75 MCG TABLET PO SCH (06:30)
[2020-05-05] MEDS: ENOXAPARIN 40 MG/0.4 ML SYRINGE SUBCUT SCH ×2 (06:30→17:30)
[2020-05-05] MEDS: INSULIN REGULAR 100 UNIT/ML SUBCUT SCH ×4 (08:03→21:30)
[2020-05-05] MEDS: NICOTINE 21 MG/24 HR PATCH TRANSDERM SCH (09:11)
[2020-05-05] MEDS: METOPROLOL TARTRATE 25 MG TABLET PO SCH ×2 (09:11→21:30)
[2020-05-05] MEDS: PANTOPRAZOLE 40 MG VIAL IV SCH (09:11)
[2020-05-05] MEDS: ASPIRIN CHEW 81 MG TABLET PO SCH (09:12)
[2020-05-05] MEDS: ISOSORBIDE MONONITRATE 30 MG TABLET PO SCH (09:12)
[2020-05-05] MEDS: FUROSEMIDE 40 MG TABLET PO SCH (09:12)
[2020-05-05] MEDS: CHLORHEXIDINE 0.12% ORAL RINSE 60 ML BOTTLE SWISH/SPIT SCH ×2 (09:19→21:30)
[2020-05-05] MEDS: CEFUROXIME INJ 1,500 MG in SYRINGE 1 EACH IV SCH (12:24)
[2020-05-05] MEDS: AMIODARONE INJ 450 MG in DEXTROSE 5% 241 ML IV SCH ×2 (14:00→18:06)
[2020-05-05] MEDS: SODIUM CHLORIDE 0.45% 1,000 ML IV SCH (14:00)
[2020-05-05] MEDS: ATORVASTATIN 40 MG TABLET PO SCH (21:30)
[2020-05-06] MEDS: CEFUROXIME INJ 1,500 MG in SYRINGE 1 EACH IV SCH ×2 (00:40→13:23)
[2020-05-06] MEDS: CLORAZEPATE 3.75 MG TABLET PO PRN ×2 (00:54→20:04)
[2020-05-06] MEDS: ALBUTEROL/IPRATROPIUM 3 ML NEB RESP TX SCH ×5 (02:50→20:06)
[2020-05-06] MEDS: MEPERIDINE 25 MG/1 ML VIAL IV PRN (03:12)
[2020-05-06 04:07] LABS: Allen Test Positive; Pt O2 Delivery Device BIPAP
[2020-05-06 04:19] LABS: ABG Base Excess -1.8 MMOL/L (-2.5-2.5); ABG HCO3 22.9 MMOL/L (20-26); ABG Oxygen Saturation 97.9 % (95-100); ABG PCO2 39.6 MM HG (35-48); ABG PH 7.375 (7.35-7.45)
[2020-05-06] MEDS: methylPREDNISolone SOD SUC 125 MG/2 ML VIAL IV SCH ×4 (04:20→21:45)
[2020-05-06 04:32] LABS: Basophils % 0.1 % (0.0-0.8); Hematocrit 30.2 VOL% (42.0-52.0); Hemoglobin 9.9 GM/DL (14.0-18.0); Immature Granulocytes % 2.3 %; Immature Granulocytes Absolute 0.26 #; Lymphocytes # 0.3 10*3/uL (1.4-4.0); Lymphocytes % 2.8 % (21.2-54.2); Mean Corpuscular HGB Conc 32.8 GM/DL (32-36); Mean Corpuscular Volume 89.3 FL (87-102); Mean Platelet Volume 11.7 FL (9.6-12.0); Monocytes % 6.2 % (1.7-12.7); Neutrophils % 88.6 % (38.7-73.9); Platelet Count 250 T/CUMM (130-400); Red Blood Count 3.38 MC/CUMM (3.8-5.5); White Blood Count 11.3 T/CUMM (4-12)
[2020-05-06 04:51] LABS: Hypochromasia 1+; Lymphocytes 2 % (20-55); Microcytosis 1+; Platelet Estimate Adequate; Segmented Neutrophils 91 % (50-85); Total Cells Counted 100
[2020-05-06 04:52] LABS: Albumin 2.2 G/DL (3.4-5.0); Bilirubin,Total 0.4 MG/DL (0.2-1.0); Calcium 8.4 MG/DL (8.5-10.1); Osmolality,Calculated 312.4 MOS/KG (273-304); Potassium 4.1 MMOL/L (3.5-5.1); Total Protein 5.9 G/DL (6.4-8.2)
[2020-05-06] MEDS: ENOXAPARIN 40 MG/0.4 ML SYRINGE SUBCUT SCH ×2 (05:46→17:30)
[2020-05-06] MEDS: LEVOTHYROXINE 75 MCG TABLET PO SCH (05:46)
[2020-05-06] MEDS: AMIODARONE INJ 450 MG in DEXTROSE 5% 241 ML IV SCH ×3 (07:03→20:55)
[2020-05-06] MEDS: INSULIN REGULAR 100 UNIT/ML SUBCUT SCH ×4 (07:20→20:12)
[2020-05-06] MEDS: PANTOPRAZOLE 40 MG VIAL IV SCH (09:49)
[2020-05-06] MEDS: NICOTINE 21 MG/24 HR PATCH TRANSDERM SCH (09:54)
[2020-05-06] MEDS: FUROSEMIDE 40 MG TABLET PO SCH (09:54)
[2020-05-06] MEDS: METOPROLOL TARTRATE 25 MG TABLET PO SCH ×2 (09:55→20:04)
[2020-05-06] MEDS: ISOSORBIDE MONONITRATE 30 MG TABLET PO SCH (09:55)
[2020-05-06] MEDS: CHLORHEXIDINE 0.12% ORAL RINSE 60 ML BOTTLE SWISH/SPIT SCH ×2 (09:55→20:13)
[2020-05-06] MEDS: ASPIRIN CHEW 81 MG TABLET PO SCH (09:55)
[2020-05-06] MEDS: SODIUM CHLORIDE 0.45% 1,000 ML IV SCH (14:00)
[2020-05-06] MEDS ORDERED: INSULIN GLARGINE 100 UNIT/ML SUBCUT ONE (16:30)
[2020-05-06] MEDS: DULoxetine 30 MG CAPSULE PO SCH (17:30)
[2020-05-06] MEDS: ATORVASTATIN 40 MG TABLET PO SCH (20:12)
[2020-05-06] MEDS: HALOPERIDOL 5 MG/ML AMP IV PRN (21:47)
[2020-05-07] MEDS: ALBUTEROL/IPRATROPIUM 3 ML NEB RESP TX SCH ×6 (00:30→20:30)
[2020-05-07] MEDS: CEFUROXIME INJ 1,500 MG in SYRINGE 1 EACH IV SCH ×2 (00:50→13:53)
[2020-05-07 04:10] LABS: Basophils % 0.1 % (0.0-0.8); Hematocrit 31.7 VOL% (42.0-52.0); Hemoglobin 10.5 GM/DL (14.0-18.0); Immature Granulocytes % 4.7 %; Lymphocytes # 0.3 10*3/uL (1.4-4.0); Lymphocytes % 2.7 % (21.2-54.2); Mean Corpuscular HGB Conc 33.1 GM/DL (32-36); Mean Platelet Volume 11.3 FL (9.6-12.0); Monocytes % 5.7 % (1.7-12.7); Neutrophils % 86.8 % (38.7-73.9); Platelet Count 287 T/CUMM (130-400); Red Blood Count 3.56 MC/CUMM (3.8-5.5); Red Cell Distribution Width 13.8 % (9.3-17.3); White Blood Count 10.7 T/CUMM (4-12)
[2020-05-07 04:25] LABS: Calcium 8.3 MG/DL (8.5-10.1); Osmolality,Calculated 310.7 MOS/KG (273-304)
[2020-05-07 04:33] LABS: Lymphocytes 3 % (20-55); Platelet Estimate Normal; Segmented Neutrophils 94 % (50-85); Total Cells Counted 100
[2020-05-07] MEDS: methylPREDNISolone SOD SUC 125 MG/2 ML VIAL IV SCH ×5 (04:58→21:21)
[2020-05-07] MEDS: HALOPERIDOL 5 MG/ML AMP IV PRN (05:10)
[2020-05-07] MEDS: POTASSIUM CHLORIDE RIDER 20 MEQ in PREMIX 1 EACH IV PRN (06:17)
[2020-05-07] MEDS: ENOXAPARIN 40 MG/0.4 ML SYRINGE SUBCUT SCH ×2 (06:20→18:02)
[2020-05-07] MEDS: AMIODARONE INJ 450 MG in DEXTROSE 5% 241 ML IV SCH ×2 (07:23→11:36)
[2020-05-07] MEDS ORDERED: INSULIN GLARGINE 100 UNIT/ML SUBCUT SCH (09:00)
[2020-05-07] MEDS ORDERED: GLUCAGON 1 MG VIAL IM PRN ×2 (09:01→15:35)
[2020-05-07] MEDS: ASPIRIN CHEW 81 MG TABLET PO SCH (09:07)
[2020-05-07] MEDS: DULoxetine 30 MG CAPSULE PO SCH (09:07)
[2020-05-07] MEDS: LEVOTHYROXINE 75 MCG TABLET PO SCH (09:07)
[2020-05-07] MEDS: CLORAZEPATE 3.75 MG TABLET PO PRN ×2 (09:07→15:09)
[2020-05-07] MEDS: METOPROLOL TARTRATE 25 MG TABLET PO SCH ×2 (09:08→21:21)
[2020-05-07] MEDS: glipiZIDE 10 MG TABLET PO SCH ×2 (09:08→18:02)
[2020-05-07] MEDS: ISOSORBIDE MONONITRATE 30 MG TABLET PO SCH (09:08)
[2020-05-07] MEDS: FUROSEMIDE 40 MG TABLET PO SCH (09:08)
[2020-05-07] MEDS: NICOTINE 21 MG/24 HR PATCH TRANSDERM SCH (09:09)
[2020-05-07] MEDS: PANTOPRAZOLE 40 MG VIAL IV SCH (09:14)
[2020-05-07] MEDS: INSULIN GLARGINE 100 UNIT/ML SUBCUT SCH ×2 (09:15→21:21)
[2020-05-07] MEDS: CHLORHEXIDINE 0.12% ORAL RINSE 60 ML BOTTLE SWISH/SPIT SCH ×2 (11:36→21:21)
[2020-05-07] MEDS: INSULIN REGULAR 100 UNIT/ML SUBCUT SCH ×5 (11:36→21:43)
[2020-05-07] MEDS: SODIUM CHLORIDE 0.45% 1,000 ML IV SCH (15:32)
[2020-05-07] MEDS ORDERED: ALUMINUM/MAGNES/SIMETH MAX STR 30 ML UDCUP PO PRN (15:35)
[2020-05-07] MEDS ORDERED: SODIUM CHLOR 0.45% KCL 20 MEQ 20 MEQ/1,000 ML BAG IV SCH (15:35)
[2020-05-07] MEDS ORDERED: ONDANSETRON 4 MG/2 ML VIAL IV PRN (15:35)
[2020-05-07] MEDS ORDERED: POTASSIUM CHLORIDE 20 MEQ TABLET PO PRN (15:35)
[2020-05-07] MEDS ORDERED: MAGNESIUM SULF RIDER 2 GM in PREMIX 1 EACH IV PRN (15:35)
[2020-05-07] MEDS ORDERED: DEXTROSE 50% 25 GM/50 ML VIAL IV PRN (15:35)
[2020-05-07] MEDS ORDERED: MAGNESIUM SULF RIDER 4 GM in PREMIX 1 EACH IV PRN (15:35)
[2020-05-07 17:36] LABS: ABG Base Excess -2.7 MMOL/L (-2.5-2.5); ABG HCO3 22.1 MMOL/L (20-26); ABG Oxygen Saturation 96.1 % (95-100); ABG PCO2 42.3 MM HG (35-48); ABG PH 7.341 (7.35-7.45); ABG PO2 87.1 MM HG (80-95); Glucose Heart Surgery 447 MG/DL (74-106); Hematocrit Heart Surgery 30.3 PERCENT (42-52); Hemoglobin Heart Surgery 9.8 G/DL (14.0-18.0); Potassium Heart/CVR 4.2 MMOL/L (3.5-5.1)
[2020-05-07] MEDS: AMIODARONE 200 MG TABLET PO SCH (21:20)
[2020-05-07] MEDS: MEPERIDINE 25 MG/1 ML VIAL IV PRN (21:20)
[2020-05-07] MEDS: ATORVASTATIN 40 MG TABLET PO SCH (21:21)
[2020-05-08] MEDS: ALBUTEROL/IPRATROPIUM 3 ML NEB RESP TX SCH ×7 (00:38→23:16)
[2020-05-08] MEDS: CEFUROXIME INJ 1,500 MG in SYRINGE 1 EACH IV SCH ×2 (01:10→13:32)
[2020-05-08] MEDS: INSULIN REGULAR 100 UNIT/ML SUBCUT SCH ×6 (01:19→21:58)
[2020-05-08] MEDS: methylPREDNISolone SOD SUC 125 MG/2 ML VIAL IV SCH ×4 (05:03→21:59)
[2020-05-08 05:21] LABS: Basophils % 0.1 % (0.0-0.8); Hematocrit 34.6 VOL% (42.0-52.0); Hemoglobin 11.1 GM/DL (14.0-18.0); Immature Granulocytes % 3.3 %; Immature Granulocytes Absolute 0.38 #; Lymphocytes # 0.5 10*3/uL (1.4-4.0); Mean Corpuscular HGB Conc 32.1 GM/DL (32-36); Mean Corpuscular Volume 92.5 FL (87-102); Mean Platelet Volume 11.7 FL (9.6-12.0); Monocytes % 6.8 % (1.7-12.7); NRBC # 0.02 10*3/uL; Neutrophils % 85.8 % (38.7-73.9); Platelet Count 294 T/CUMM (130-400); Red Blood Count 3.74 MC/CUMM (3.8-5.5); Red Cell Distribution Width 13.6 % (9.3-17.3); White Blood Count 11.5 T/CUMM (4-12)
[2020-05-08 05:36] LABS: Albumin 2.3 G/DL (3.4-5.0); Bilirubin,Total 1.6 MG/DL (0.2-1.0); Calcium 7.9 MG/DL (8.5-10.1); Osmolality,Calculated 311.8 MOS/KG (273-304); Potassium 4.3 MMOL/L (3.5-5.1); Total Protein 5.3 G/DL (6.4-8.2)
[2020-05-08] MEDS: MEPERIDINE 25 MG/1 ML VIAL IV PRN (05:38)
[2020-05-08 05:41] LABS: Alanine Aminotransferase 36 U/L (16-61); Albumin 2.3 G/DL (3.4-5.0); Alkaline Phosphatase 128 U/L (45-117); Aspartate Amino Transferase 18 U/L (0-37); Bilirubin,Indirect 0.9 MG/DL (0.0-1.0)
[2020-05-08] MEDS ORDERED: MEPERIDINE 50 MG/1 ML VIAL IV PRN (06:00)
[2020-05-08] MEDS ORDERED: FUROSEMIDE 40 MG/4 ML VIAL IV ONE (06:00)
[2020-05-08] MEDS: LEVOTHYROXINE 75 MCG TABLET PO SCH (06:02)
[2020-05-08] MEDS: ENOXAPARIN 40 MG/0.4 ML SYRINGE SUBCUT SCH ×2 (06:02→18:22)
[2020-05-08 07:00] LABS: Lymphocytes 5 % (20-55); Nucleated Red Blood Cells 1 (0-5); Segmented Neutrophils 86 % (50-85); Total Cells Counted 100
[2020-05-08 07:01] LABS: Hypochromasia 2+; Platelet Estimate Normal
[2020-05-08] MEDS: INSULIN GLARGINE 100 UNIT/ML SUBCUT SCH ×2 (09:20→21:59)
[2020-05-08] MEDS: FUROSEMIDE 40 MG TABLET PO SCH (09:27)
[2020-05-08] MEDS: PANTOPRAZOLE 40 MG TABLET PO SCH (09:27)
[2020-05-08] MEDS: DOCUSATE SODIUM 100 MG CAPSULE PO SCH (09:28)
[2020-05-08] MEDS: FERROUS SULFATE 325 MG TABLET PO SCH (09:28)
[2020-05-08] MEDS: METOPROLOL TARTRATE 25 MG TABLET PO SCH ×2 (09:29→21:59)
[2020-05-08] MEDS: DULoxetine 30 MG CAPSULE PO SCH (09:31)
[2020-05-08] MEDS: AMIODARONE 200 MG TABLET PO SCH ×2 (09:31→21:59)
[2020-05-08] MEDS: ISOSORBIDE MONONITRATE 30 MG TABLET PO SCH (09:32)
[2020-05-08] MEDS: glipiZIDE 10 MG TABLET PO SCH ×2 (09:32→18:03)
[2020-05-08] MEDS: NICOTINE 21 MG/24 HR PATCH TRANSDERM SCH (09:33)
[2020-05-08] MEDS: ASPIRIN CHEW 81 MG TABLET PO SCH (09:33)
[2020-05-08] MEDS: CHLORHEXIDINE 0.12% ORAL RINSE 60 ML BOTTLE SWISH/SPIT SCH ×2 (10:57→21:59)
[2020-05-08] MEDS: ATORVASTATIN 40 MG TABLET PO SCH (21:59)
[2020-05-09] MEDS: CEFUROXIME INJ 1,500 MG in SYRINGE 1 EACH IV SCH ×2 (00:15→13:00)
[2020-05-09] MEDS: INSULIN REGULAR 100 UNIT/ML SUBCUT SCH ×6 (03:13→22:11)
[2020-05-09] MEDS: ALBUTEROL/IPRATROPIUM 3 ML NEB RESP TX SCH ×5 (03:36→19:41)
[2020-05-09] MEDS: methylPREDNISolone SOD SUC 125 MG/2 ML VIAL IV SCH (05:02)
[2020-05-09] MEDS: LEVOTHYROXINE 75 MCG TABLET PO SCH (05:49)
[2020-05-09] MEDS: ENOXAPARIN 40 MG/0.4 ML SYRINGE SUBCUT SCH ×2 (05:49→18:02)
[2020-05-09 05:51] LABS: Basophils % 0.2 % (0.0-0.8); Hematocrit 34.4 VOL% (42.0-52.0); Hemoglobin 10.8 GM/DL (14.0-18.0); Immature Granulocytes % 6.1 %; Immature Granulocytes Absolute 0.71 #; Lymphocytes # 0.4 10*3/uL (1.4-4.0); Mean Corpuscular HGB Conc 31.4 GM/DL (32-36); Mean Platelet Volume 11.5 FL (9.6-12.0); Monocytes % 5.4 % (1.7-12.7); NRBC # 0.03 10*3/uL; Neutrophils % 85.3 % (38.7-73.9); Platelet Count 273 T/CUMM (130-400); Red Cell Distribution Width 13.5 % (9.3-17.3); White Blood Count 11.7 T/CUMM (4-12)
[2020-05-09 06:13] LABS: Hypochromasia 1+; Lymphocytes 5 % (20-55); Microcytosis 1+; Platelet Estimate Adequate; Segmented Neutrophils 88 % (50-85); Total Cells Counted 100
[2020-05-09 06:15] LABS: Calcium 8.2 MG/DL (8.5-10.1); Osmolality,Calculated 316.2 MOS/KG (273-304); Potassium 4.7 MMOL/L (3.5-5.1)
[2020-05-09 06:18] LABS: Alanine Aminotransferase 34 U/L (16-61); Albumin 2.2 G/DL (3.4-5.0); Alkaline Phosphatase 110 U/L (45-117); Aspartate Amino Transferase 15 U/L (0-37); Bilirubin,Indirect 1.5 MG/DL (0.0-1.0); Total Protein 5.6 G/DL (6.4-8.2)
[2020-05-09 06:22] LABS: Troponin I 0.855 NG/ML (0.00-0.045)
[2020-05-09] MEDS: ASPIRIN CHEW 81 MG TABLET PO SCH (09:08)
[2020-05-09] MEDS: NICOTINE 21 MG/24 HR PATCH TRANSDERM SCH (09:08)
[2020-05-09] MEDS: DULoxetine 30 MG CAPSULE PO SCH (09:12)
[2020-05-09] MEDS: PANTOPRAZOLE 40 MG TABLET PO SCH (09:13)
[2020-05-09] MEDS: FUROSEMIDE 40 MG TABLET PO SCH (09:13)
[2020-05-09] MEDS: AMIODARONE 200 MG TABLET PO SCH ×2 (09:13→22:11)
[2020-05-09] MEDS: METOPROLOL TARTRATE 25 MG TABLET PO SCH ×2 (09:13→22:11)
[2020-05-09] MEDS: FERROUS SULFATE 325 MG TABLET PO SCH (09:13)
[2020-05-09] MEDS: ISOSORBIDE MONONITRATE 30 MG TABLET PO SCH (09:13)
[2020-05-09] MEDS: glipiZIDE 10 MG TABLET PO SCH ×2 (09:15→16:41)
[2020-05-09] MEDS: DOCUSATE SODIUM 100 MG CAPSULE PO SCH (09:16)
[2020-05-09] MEDS: CHLORHEXIDINE 0.12% ORAL RINSE 60 ML BOTTLE SWISH/SPIT SCH ×2 (09:25→22:11)
[2020-05-09] MEDS: INSULIN GLARGINE 100 UNIT/ML SUBCUT SCH ×2 (09:29→22:11)
[2020-05-09] MEDS ORDERED: methylPREDNISolone SOD SUC 40 MG/1 ML VIAL IV SCH (10:00)
[2020-05-09] MEDS: oxyCODONE/ACETAMINOPHEN 5-325 MG TABLET PO PRN (16:36)
[2020-05-09] MEDS: ATORVASTATIN 40 MG TABLET PO SCH (22:11)
[2020-05-10] MEDS: oxyCODONE/ACETAMINOPHEN 5-325 MG TABLET PO PRN ×2 (00:20→19:57)
[2020-05-10] MEDS: CEFUROXIME INJ 1,500 MG in SYRINGE 1 EACH IV SCH ×2 (00:21→13:01)
[2020-05-10] MEDS: ALBUTEROL/IPRATROPIUM 3 ML NEB RESP TX SCH ×6 (00:26→19:36)
[2020-05-10] MEDS: INSULIN REGULAR 100 UNIT/ML SUBCUT SCH ×6 (01:37→22:35)
[2020-05-10] MEDS: LEVOTHYROXINE 75 MCG TABLET PO SCH (06:08)
[2020-05-10] MEDS: ENOXAPARIN 40 MG/0.4 ML SYRINGE SUBCUT SCH ×2 (06:08→18:23)
[2020-05-10 06:27] LABS: Basophils % 0.1 % (0.0-0.8); Eosinophils # 0.1 10*3/uL (0.0-0.87); Eosinophils % 0.7 % (0.00-10.9); Hematocrit 34.6 VOL% (42.0-52.0); Hemoglobin 10.8 GM/DL (14.0-18.0); Immature Granulocytes % 3.9 %; Immature Granulocytes Absolute 0.53 #; Lymphocytes # 1.4 10*3/uL (1.4-4.0); Lymphocytes % 10.4 % (21.2-54.2); Mean Corpuscular HGB Conc 31.2 GM/DL (32-36); Mean Platelet Volume 11.5 FL (9.6-12.0); Monocytes % 9.3 % (1.7-12.7); NRBC # 0.03 10*3/uL; Neutrophils % 75.6 % (38.7-73.9); Platelet Count 283 T/CUMM (130-400); Red Blood Count 3.68 MC/CUMM (3.8-5.5); Red Cell Distribution Width 13.9 % (9.3-17.3); White Blood Count 13.5 T/CUMM (4-12)
[2020-05-10 06:37] LABS: Calcium 7.9 MG/DL (8.5-10.1); Osmolality,Calculated 312.3 MOS/KG (273-304); Potassium 3.9 MMOL/L (3.5-5.1)
[2020-05-10 06:45] LABS: Hypochromasia Slight; Lymphocytes 11 % (20-55); Microcytosis Slight; Ovalocytes Slight; Platelet Estimate Adequate; Segmented Neutrophils 86 % (50-85); Total Cells Counted 100
[2020-05-10] MEDS: NICOTINE 21 MG/24 HR PATCH TRANSDERM SCH (08:16)
[2020-05-10] MEDS: DULoxetine 30 MG CAPSULE PO SCH (08:18)
[2020-05-10] MEDS: ISOSORBIDE MONONITRATE 30 MG TABLET PO SCH (08:18)
[2020-05-10] MEDS: INSULIN GLARGINE 100 UNIT/ML SUBCUT SCH (08:18)
[2020-05-10] MEDS: FUROSEMIDE 40 MG TABLET PO SCH (08:19)
[2020-05-10] MEDS: glipiZIDE 10 MG TABLET PO SCH ×2 (08:19→16:46)
[2020-05-10] MEDS: DOCUSATE SODIUM 100 MG CAPSULE PO SCH (08:19)
[2020-05-10] MEDS: FERROUS SULFATE 325 MG TABLET PO SCH (08:19)
[2020-05-10] MEDS: AMIODARONE 200 MG TABLET PO SCH (08:19)
[2020-05-10] MEDS: ASPIRIN CHEW 81 MG TABLET PO SCH (08:19)
[2020-05-10] MEDS: PANTOPRAZOLE 40 MG TABLET PO SCH (08:19)
[2020-05-10] MEDS: CHLORHEXIDINE 0.12% ORAL RINSE 60 ML BOTTLE SWISH/SPIT SCH (08:20)
[2020-05-10] MEDS ORDERED: METOPROLOL TARTRATE 25 MG TABLET PO SCH (09:00)
[2020-05-10] MEDS: amLODIPine 5 MG TABLET PO SCH (13:00)
[2020-05-10] MEDS: ATORVASTATIN 40 MG TABLET PO SCH (22:33)
[2020-05-11] MEDS: ALBUTEROL/IPRATROPIUM 3 ML NEB RESP TX SCH ×7 (00:08→23:42)
[2020-05-11] MEDS: CEFUROXIME INJ 1,500 MG in SYRINGE 1 EACH IV SCH ×2 (01:53→14:50)
[2020-05-11] MEDS: oxyCODONE/ACETAMINOPHEN 5-325 MG TABLET PO PRN ×2 (01:59→20:49)
[2020-05-11] MEDS: CHLORHEXIDINE 0.12% ORAL RINSE 60 ML BOTTLE SWISH/SPIT SCH ×3 (02:00→20:49)
[2020-05-11 04:20] LABS: Basophils # 0.1 10*3/uL (0.0-0.2); Basophils % 0.4 % (0.0-0.8); Eosinophils # 0.2 10*3/uL (0.0-0.87); Eosinophils % 1.4 % (0.00-10.9); Hematocrit 35.2 VOL% (42.0-52.0); Hemoglobin 11.5 GM/DL (14.0-18.0); Immature Granulocytes % 3.7 %; Immature Granulocytes Absolute 0.52 #; Mean Corpuscular HGB Conc 32.7 GM/DL (32-36); Mean Corpuscular Volume 91.7 FL (87-102); Mean Platelet Volume 11.4 FL (9.6-12.0); Monocytes % 7.8 % (1.7-12.7); Neutrophils % 79.7 % (38.7-73.9); Platelet Count 241 T/CUMM (130-400); Red Blood Count 3.84 MC/CUMM (3.8-5.5); Red Cell Distribution Width 14.2 % (9.3-17.3); White Blood Count 13.9 T/CUMM (4-12)
[2020-05-11 04:49] LABS: Alanine Aminotransferase 36 U/L (16-61); Albumin 2.4 G/DL (3.4-5.0); Alkaline Phosphatase 107 U/L (45-117); Aspartate Amino Transferase 26 U/L (0-37); Bilirubin,Indirect 0.4 MG/DL (0.0-1.0); Blood Urea Nitrogen 120 MG/DL (7-18); Calcium 8.4 MG/DL (8.5-10.1); Carbon Dioxide 27 MMOL/L (21-32); Estimated Glom Filtration Rate 32 ML/MIN; Glucose 82 MG/DL (74-106); Osmolality,Calculated 315.4 MOS/KG (273-304); Potassium 4.2 MMOL/L (3.5-5.1); Sodium 140 MMOL/L (136-145); Total Protein 5.4 G/DL (6.4-8.2)
[2020-05-11 04:51] LABS: Eosinophils 2 % (0-10); Hypochromasia 2+; Lymphocytes 7 % (20-55); Platelet Estimate Normal; Segmented Neutrophils 81 % (50-85); Total Cells Counted 100
[2020-05-11 04:52] LABS: Troponin I 0.768 NG/ML (0.00-0.045)
[2020-05-11] MEDS: LEVOTHYROXINE 75 MCG TABLET PO SCH (07:08)
[2020-05-11] MEDS: ENOXAPARIN 40 MG/0.4 ML SYRINGE SUBCUT SCH ×2 (07:11→23:32)
[2020-05-11] MEDS: INSULIN REGULAR 100 UNIT/ML SUBCUT SCH ×4 (07:50→21:10)
[2020-05-11] MEDS: NICOTINE 21 MG/24 HR PATCH TRANSDERM SCH (08:20)
[2020-05-11] MEDS: INSULIN GLARGINE 100 UNIT/ML SUBCUT SCH (08:20)
[2020-05-11] MEDS: PANTOPRAZOLE 40 MG TABLET PO SCH (08:21)
[2020-05-11] MEDS: DULoxetine 30 MG CAPSULE PO SCH (08:21)
[2020-05-11] MEDS: ASPIRIN CHEW 81 MG TABLET PO SCH (08:21)
[2020-05-11] MEDS: FUROSEMIDE 40 MG TABLET PO SCH (08:21)
[2020-05-11] MEDS: amLODIPine 5 MG TABLET PO SCH (08:21)
[2020-05-11] MEDS: glipiZIDE 10 MG TABLET PO SCH ×2 (08:21→16:39)
[2020-05-11] MEDS: FERROUS SULFATE 325 MG TABLET PO SCH (08:21)
[2020-05-11] MEDS: ISOSORBIDE MONONITRATE 30 MG TABLET PO SCH (08:21)
[2020-05-11] MEDS: DOCUSATE SODIUM 100 MG CAPSULE PO SCH (08:21)
[2020-05-11] MEDS: METOPROLOL TARTRATE 25 MG TABLET PO SCH (08:22)
[2020-05-11] MEDS: ATORVASTATIN 40 MG TABLET PO SCH (20:47)
[2020-05-12] MEDS: CEFUROXIME INJ 1,500 MG in SYRINGE 1 EACH IV SCH ×3 (00:32→23:55)
[2020-05-12] MEDS: ALBUTEROL/IPRATROPIUM 3 ML NEB RESP TX SCH ×6 (02:30→23:21)
[2020-05-12] MEDS: ACETAMINOPHEN 325 MG TABLET PO PRN (05:24)
[2020-05-12 05:38] LABS: Basophils % 0.2 % (0.0-0.8); Eosinophils # 0.5 10*3/uL (0.0-0.87); Hematocrit 35.3 VOL% (42.0-52.0); Hemoglobin 11.2 GM/DL (14.0-18.0); Immature Granulocytes % 3.2 %; Immature Granulocytes Absolute 0.48 #; Lymphocytes # 0.8 10*3/uL (1.4-4.0); Lymphocytes % 5.3 % (21.2-54.2); Mean Corpuscular HGB Conc 31.7 GM/DL (32-36); Mean Corpuscular Volume 92.9 FL (87-102); Monocytes % 7.1 % (1.7-12.7); Neutrophils % 81.2 % (38.7-73.9); Platelet Count 239 T/CUMM (130-400); Red Cell Distribution Width 14.3 % (9.3-17.3); White Blood Count 15.1 T/CUMM (4-12)
[2020-05-12 06:11] LABS: Albumin 2.3 G/DL (3.4-5.0); Bilirubin,Direct 0.17 MG/DL (0.0-0.20); Bilirubin,Indirect 0.4 MG/DL (0.0-1.0); Bilirubin,Total 0.6 MG/DL (0.2-1.0); CKMB % 7.4 %; Calcium 8.6 MG/DL (8.5-10.1); Osmolality,Calculated 313.3 MOS/KG (273-304); Potassium 4.1 MMOL/L (3.5-5.1); Total Protein 5.4 G/DL (6.4-8.2)
[2020-05-12 06:12] LABS: Troponin I 0.625 NG/ML (0.00-0.045)
[2020-05-12] MEDS: LEVOTHYROXINE 75 MCG TABLET PO SCH (06:32)
[2020-05-12] MEDS: ENOXAPARIN 40 MG/0.4 ML SYRINGE SUBCUT SCH ×2 (06:35→17:44)
[2020-05-12] MEDS: INSULIN REGULAR 100 UNIT/ML SUBCUT SCH ×4 (08:53→21:48)
[2020-05-12] MEDS: INSULIN GLARGINE 100 UNIT/ML SUBCUT SCH (08:54)
[2020-05-12] MEDS: glipiZIDE 10 MG TABLET PO SCH ×2 (08:54→17:12)
[2020-05-12] MEDS: NICOTINE 21 MG/24 HR PATCH TRANSDERM SCH (08:54)
[2020-05-12] MEDS: FERROUS SULFATE 325 MG TABLET PO SCH (08:55)
[2020-05-12] MEDS: amLODIPine 5 MG TABLET PO SCH (08:55)
[2020-05-12] MEDS: ISOSORBIDE MONONITRATE 30 MG TABLET PO SCH (08:55)
[2020-05-12] MEDS: ASPIRIN CHEW 81 MG TABLET PO SCH (08:55)
[2020-05-12] MEDS: DULoxetine 30 MG CAPSULE PO SCH (08:55)
[2020-05-12] MEDS: DOCUSATE SODIUM 100 MG CAPSULE PO SCH (08:55)
[2020-05-12] MEDS: METOPROLOL TARTRATE 25 MG TABLET PO SCH (08:56)
[2020-05-12] MEDS: PANTOPRAZOLE 40 MG TABLET PO SCH (08:56)
[2020-05-12] MEDS: FUROSEMIDE 40 MG TABLET PO SCH (08:56)
[2020-05-12] MEDS: CHLORHEXIDINE 0.12% ORAL RINSE 60 ML BOTTLE SWISH/SPIT SCH ×2 (08:59→21:47)
[2020-05-12] MEDS: TAMSULOSIN 0.4 MG CAPSULE PO SCH (21:48)
[2020-05-12] MEDS: oxyCODONE/ACETAMINOPHEN 5-325 MG TABLET PO PRN (21:48)
[2020-05-12] MEDS: ATORVASTATIN 40 MG TABLET PO SCH (21:48)
[2020-05-13] MEDS: ALBUTEROL/IPRATROPIUM 3 ML NEB RESP TX SCH ×5 (02:00→20:25)
[2020-05-13 05:16] LABS: Basophils % 0.1 % (0.0-0.8); Eosinophils # 0.4 10*3/uL (0.0-0.87); Eosinophils % 3.6 % (0.00-10.9); Hematocrit 30.2 VOL% (42.0-52.0); Hemoglobin 9.7 GM/DL (14.0-18.0); Immature Granulocytes % 1.7 %; Immature Granulocytes Absolute 0.17 #; Lymphocytes # 0.7 10*3/uL (1.4-4.0); Lymphocytes % 7.4 % (21.2-54.2); Mean Corpuscular HGB Conc 32.1 GM/DL (32-36); Mean Corpuscular Volume 91.5 FL (87-102); Mean Platelet Volume 12.9 FL (9.6-12.0); Monocytes % 7.5 % (1.7-12.7); Neutrophils % 79.7 % (38.7-73.9); Platelet Count 164 T/CUMM (130-400); Red Cell Distribution Width 14.6 % (9.3-17.3); White Blood Count 9.9 T/CUMM (4-12)
[2020-05-13] MEDS: LEVOTHYROXINE 75 MCG TABLET PO SCH (05:30)
[2020-05-13] MEDS: ENOXAPARIN 40 MG/0.4 ML SYRINGE SUBCUT SCH ×2 (05:30→17:30)
[2020-05-13 05:34] LABS: Potassium 3.9 MMOL/L (3.5-5.1)
[2020-05-13] MEDS: INSULIN REGULAR 100 UNIT/ML SUBCUT SCH ×4 (08:48→22:01)
[2020-05-13] MEDS: NICOTINE 21 MG/24 HR PATCH TRANSDERM SCH (08:50)
[2020-05-13] MEDS: INSULIN GLARGINE 100 UNIT/ML SUBCUT SCH (08:51)
[2020-05-13] MEDS: PANTOPRAZOLE 40 MG TABLET PO SCH (08:52)
[2020-05-13] MEDS: DOCUSATE SODIUM 100 MG CAPSULE PO SCH (08:52)
[2020-05-13] MEDS: FERROUS SULFATE 325 MG TABLET PO SCH (08:52)
[2020-05-13] MEDS: ASPIRIN CHEW 81 MG TABLET PO SCH (08:52)
[2020-05-13] MEDS: amLODIPine 5 MG TABLET PO SCH (08:52)
[2020-05-13] MEDS: ISOSORBIDE MONONITRATE 30 MG TABLET PO SCH (08:52)
[2020-05-13] MEDS: DULoxetine 30 MG CAPSULE PO SCH (08:52)
[2020-05-13] MEDS: glipiZIDE 10 MG TABLET PO SCH ×2 (08:52→16:58)
[2020-05-13] MEDS: METOPROLOL TARTRATE 25 MG TABLET PO SCH (08:53)
[2020-05-13] MEDS: FUROSEMIDE 40 MG TABLET PO SCH (08:53)
[2020-05-13] MEDS: CHLORHEXIDINE 0.12% ORAL RINSE 60 ML BOTTLE SWISH/SPIT SCH ×2 (08:53→22:02)
[2020-05-13] MEDS: CEFUROXIME INJ 1,500 MG in SYRINGE 1 EACH IV SCH (12:02)
[2020-05-13] MEDS: oxyCODONE/ACETAMINOPHEN 5-325 MG TABLET PO PRN (22:02)
[2020-05-13] MEDS: TAMSULOSIN 0.4 MG CAPSULE PO SCH (22:02)
[2020-05-13] MEDS: ATORVASTATIN 40 MG TABLET PO SCH (22:02)
[2020-05-14] MEDS: CEFUROXIME INJ 1,500 MG in SYRINGE 1 EACH IV SCH ×2 (00:35→12:23)
[2020-05-14] MEDS: ACETAMINOPHEN 325 MG TABLET PO PRN (00:42)
[2020-05-14] MEDS: ALBUTEROL/IPRATROPIUM 3 ML NEB RESP TX SCH ×6 (00:49→20:25)
[2020-05-14 04:41] LABS: Basophils % 0.1 % (0.0-0.8); Eosinophils # 0.3 10*3/uL (0.0-0.87); Eosinophils % 3.7 % (0.00-10.9); Hematocrit 29.1 VOL% (42.0-52.0); Hemoglobin 9.2 GM/DL (14.0-18.0); Immature Granulocytes % 1.5 %; Immature Granulocytes Absolute 0.12 #; Lymphocytes # 0.6 10*3/uL (1.4-4.0); Lymphocytes % 7.1 % (21.2-54.2); Mean Corpuscular HGB Conc 31.6 GM/DL (32-36); Mean Corpuscular Volume 94.2 FL (87-102); Mean Platelet Volume 12.6 FL (9.6-12.0); Monocytes % 8.7 % (1.7-12.7); Neutrophils % 78.9 % (38.7-73.9); Platelet Count 136 T/CUMM (130-400); Red Blood Count 3.09 MC/CUMM (3.8-5.5); Red Cell Distribution Width 14.4 % (9.3-17.3); White Blood Count 7.9 T/CUMM (4-12)
[2020-05-14 05:10] LABS: Calcium 8.1 MG/DL (8.5-10.1); Osmolality,Calculated 317.1 MOS/KG (273-304); Potassium 4.4 MMOL/L (3.5-5.1)
[2020-05-14] MEDS: LEVOTHYROXINE 75 MCG TABLET PO SCH (06:03)
[2020-05-14] MEDS: ENOXAPARIN 40 MG/0.4 ML SYRINGE SUBCUT SCH ×2 (06:04→17:38)
[2020-05-14] MEDS: DULoxetine 30 MG CAPSULE PO SCH (09:11)
[2020-05-14] MEDS: DOCUSATE SODIUM 100 MG CAPSULE PO SCH (09:11)
[2020-05-14] MEDS: METOPROLOL TARTRATE 25 MG TABLET PO SCH (09:12)
[2020-05-14] MEDS: PANTOPRAZOLE 40 MG TABLET PO SCH (09:12)
[2020-05-14] MEDS: FERROUS SULFATE 325 MG TABLET PO SCH (09:12)
[2020-05-14] MEDS: amLODIPine 5 MG TABLET PO SCH (09:12)
[2020-05-14] MEDS: FUROSEMIDE 40 MG TABLET PO SCH (09:13)
[2020-05-14] MEDS: ISOSORBIDE MONONITRATE 30 MG TABLET PO SCH (09:13)
[2020-05-14] MEDS: glipiZIDE 10 MG TABLET PO SCH ×2 (09:13→16:23)
[2020-05-14] MEDS: ASPIRIN CHEW 81 MG TABLET PO SCH (09:13)
[2020-05-14] MEDS: NICOTINE 21 MG/24 HR PATCH TRANSDERM SCH (09:14)
[2020-05-14] MEDS: INSULIN GLARGINE 100 UNIT/ML SUBCUT SCH (09:16)
[2020-05-14] MEDS: INSULIN REGULAR 100 UNIT/ML SUBCUT SCH ×4 (09:16→21:40)
[2020-05-14] MEDS: CHLORHEXIDINE 0.12% ORAL RINSE 60 ML BOTTLE SWISH/SPIT SCH ×2 (09:19→21:48)
[2020-05-14] MEDS ORDERED: FUROSEMIDE 40 MG/4 ML VIAL IV ONE (13:00)
[2020-05-14] MEDS: ATORVASTATIN 40 MG TABLET PO SCH (21:39)
[2020-05-14] MEDS: TAMSULOSIN 0.4 MG CAPSULE PO SCH (21:39)
[2020-05-14] MEDS: oxyCODONE/ACETAMINOPHEN 5-325 MG TABLET PO PRN (21:45)
[2020-05-15] MEDS: ALBUTEROL/IPRATROPIUM 3 ML NEB RESP TX SCH ×6 (00:27→19:24)
[2020-05-15] MEDS: CEFUROXIME INJ 1,500 MG in SYRINGE 1 EACH IV SCH ×2 (00:48→12:11)
[2020-05-15 06:22] LABS: Basophils % 0.1 % (0.0-0.8); Eosinophils # 0.4 10*3/uL (0.0-0.87); Eosinophils % 4.6 % (0.00-10.9); Hematocrit 28.7 VOL% (42.0-52.0); Hemoglobin 8.9 GM/DL (14.0-18.0); Immature Granulocytes % 1.3 %; Immature Granulocytes Absolute 0.11 #; Lymphocytes # 0.7 10*3/uL (1.4-4.0); Lymphocytes % 8.7 % (21.2-54.2); Mean Corpuscular Volume 96.6 FL (87-102); Mean Platelet Volume 13.1 FL (9.6-12.0); Monocytes % 11.1 % (1.7-12.7); Neutrophils % 74.2 % (38.7-73.9); Platelet Count 138 T/CUMM (130-400); Red Blood Count 2.97 MC/CUMM (3.8-5.5); Red Cell Distribution Width 14.5 % (9.3-17.3); White Blood Count 8.2 T/CUMM (4-12)
[2020-05-15 06:38] LABS: Calcium 8.3 MG/DL (8.5-10.1); Osmolality,Calculated 312.3 MOS/KG (273-304); Potassium 4.5 MMOL/L (3.5-5.1)
[2020-05-15] MEDS: LEVOTHYROXINE 75 MCG TABLET PO SCH (07:21)
[2020-05-15] MEDS: ENOXAPARIN 40 MG/0.4 ML SYRINGE SUBCUT SCH ×2 (07:22→17:39)
[2020-05-15 07:36] LABS: Anisocytosis 1+; Macrocytosis 1+; Platelet Estimate Adequate
[2020-05-15] MEDS: glipiZIDE 10 MG TABLET PO SCH ×2 (07:36→16:33)
[2020-05-15] MEDS: oxyCODONE/ACETAMINOPHEN 5-325 MG TABLET PO PRN (07:36)
[2020-05-15] MEDS: INSULIN REGULAR 100 UNIT/ML SUBCUT SCH ×4 (08:44→21:28)
[2020-05-15] MEDS: INSULIN GLARGINE 100 UNIT/ML SUBCUT SCH (08:50)
[2020-05-15] MEDS: ISOSORBIDE MONONITRATE 30 MG TABLET PO SCH (08:51)
[2020-05-15] MEDS: NICOTINE 21 MG/24 HR PATCH TRANSDERM SCH (08:51)
[2020-05-15] MEDS: METOPROLOL TARTRATE 25 MG TABLET PO SCH (08:52)
[2020-05-15] MEDS: PANTOPRAZOLE 40 MG TABLET PO SCH (08:52)
[2020-05-15] MEDS: ASPIRIN CHEW 81 MG TABLET PO SCH (08:52)
[2020-05-15] MEDS: amLODIPine 5 MG TABLET PO SCH (08:52)
[2020-05-15] MEDS: DULoxetine 30 MG CAPSULE PO SCH (08:52)
[2020-05-15] MEDS: FUROSEMIDE 40 MG TABLET PO SCH (08:52)
[2020-05-15] MEDS: FERROUS SULFATE 325 MG TABLET PO SCH (08:52)
[2020-05-15] MEDS: CHLORHEXIDINE 0.12% ORAL RINSE 60 ML BOTTLE SWISH/SPIT SCH ×2 (08:53→21:29)
[2020-05-15] MEDS: DOCUSATE SODIUM 100 MG CAPSULE PO SCH (08:53)
[2020-05-15] MEDS: TAMSULOSIN 0.4 MG CAPSULE PO SCH (21:28)
[2020-05-15] MEDS: ATORVASTATIN 40 MG TABLET PO SCH (21:28)
[2020-05-16] MEDS: ALBUTEROL/IPRATROPIUM 3 ML NEB RESP TX SCH ×6 (00:25→19:23)
[2020-05-16] MEDS: oxyCODONE/ACETAMINOPHEN 5-325 MG TABLET PO PRN ×2 (00:36→21:29)
[2020-05-16] MEDS: CEFUROXIME INJ 1,500 MG in SYRINGE 1 EACH IV SCH (00:40)
[2020-05-16 06:09] LABS: Eosinophils # 0.4 10*3/uL (0.0-0.87); Eosinophils % 5.2 % (0.00-10.9); Hematocrit 28.2 VOL% (42.0-52.0); Hemoglobin 8.7 GM/DL (14.0-18.0); Immature Granulocytes % 1.3 %; Lymphocytes # 0.7 10*3/uL (1.4-4.0); Lymphocytes % 8.8 % (21.2-54.2); Mean Corpuscular HGB Conc 30.9 GM/DL (32-36); Mean Corpuscular Volume 96.6 FL (87-102); Mean Platelet Volume 13.5 FL (9.6-12.0); Monocytes % 10.5 % (1.7-12.7); Neutrophils % 74.2 % (38.7-73.9); Platelet Count 140 T/CUMM (130-400); Red Blood Count 2.92 MC/CUMM (3.8-5.5); Red Cell Distribution Width 14.5 % (9.3-17.3); White Blood Count 7.9 T/CUMM (4-12)
[2020-05-16] MEDS: LEVOTHYROXINE 75 MCG TABLET PO SCH (06:23)
[2020-05-16 06:24] LABS: Calcium 7.9 MG/DL (8.5-10.1); Osmolality,Calculated 308.3 MOS/KG (273-304); Potassium 4.5 MMOL/L (3.5-5.1)
[2020-05-16] MEDS: ENOXAPARIN 40 MG/0.4 ML SYRINGE SUBCUT SCH ×2 (06:24→17:57)
[2020-05-16 07:11] LABS: Platelet Estimate Adequate
[2020-05-16] MEDS: INSULIN REGULAR 100 UNIT/ML SUBCUT SCH ×4 (07:43→21:30)
[2020-05-16] MEDS: NICOTINE 21 MG/24 HR PATCH TRANSDERM SCH (08:16)
[2020-05-16] MEDS: ASPIRIN CHEW 81 MG TABLET PO SCH (08:17)
[2020-05-16] MEDS: amLODIPine 5 MG TABLET PO SCH (08:17)
[2020-05-16] MEDS: INSULIN GLARGINE 100 UNIT/ML SUBCUT SCH (08:17)
[2020-05-16] MEDS: glipiZIDE 10 MG TABLET PO SCH ×2 (08:17→16:05)
[2020-05-16] MEDS: DULoxetine 30 MG CAPSULE PO SCH (08:17)
[2020-05-16] MEDS: METOPROLOL TARTRATE 25 MG TABLET PO SCH (08:18)
[2020-05-16] MEDS: PANTOPRAZOLE 40 MG TABLET PO SCH (08:18)
[2020-05-16] MEDS: CHLORHEXIDINE 0.12% ORAL RINSE 60 ML BOTTLE SWISH/SPIT SCH ×2 (08:18→21:30)
[2020-05-16] MEDS: FUROSEMIDE 40 MG TABLET PO SCH (08:18)
[2020-05-16] MEDS: ISOSORBIDE MONONITRATE 30 MG TABLET PO SCH (08:18)
[2020-05-16] MEDS: FERROUS SULFATE 325 MG TABLET PO SCH (08:18)
[2020-05-16] MEDS: DOCUSATE SODIUM 100 MG CAPSULE PO SCH (08:18)
[2020-05-16] MEDS: MAGNESIUM HYDROXIDE SUSP 30 ML UDCUP PO PRN (08:59)
[2020-05-16] MEDS: ATORVASTATIN 40 MG TABLET PO SCH (21:29)
[2020-05-16] MEDS: TAMSULOSIN 0.4 MG CAPSULE PO SCH (21:29)
[2020-05-17] MEDS: ALBUTEROL/IPRATROPIUM 3 ML NEB RESP TX SCH ×6 (00:03→19:26)
[2020-05-17 04:31] LABS: Eosinophils # 0.4 10*3/uL (0.0-0.87); Eosinophils % 5.6 % (0.00-10.9); Hematocrit 26.9 VOL% (42.0-52.0); Hemoglobin 8.2 GM/DL (14.0-18.0); Immature Granulocytes % 1.2 %; Immature Granulocytes Absolute 0.09 #; Lymphocytes # 0.7 10*3/uL (1.4-4.0); Lymphocytes % 8.5 % (21.2-54.2); Mean Corpuscular HGB Conc 30.5 GM/DL (32-36); Mean Corpuscular Volume 96.1 FL (87-102); Monocytes % 10.8 % (1.7-12.7); Neutrophils % 73.9 % (38.7-73.9); Platelet Count 131 T/CUMM (130-400); Red Cell Distribution Width 14.5 % (9.3-17.3); White Blood Count 7.8 T/CUMM (4-12)
[2020-05-17 04:58] LABS: Calcium 8.1 MG/DL (8.5-10.1); Osmolality,Calculated 305.3 MOS/KG (273-304); Potassium 4.6 MMOL/L (3.5-5.1)
[2020-05-17] MEDS: ENOXAPARIN 40 MG/0.4 ML SYRINGE SUBCUT SCH ×2 (06:30→17:41)
[2020-05-17] MEDS: LEVOTHYROXINE 75 MCG TABLET PO SCH (06:30)
[2020-05-17] MEDS: MAGNESIUM HYDROXIDE SUSP 30 ML UDCUP PO PRN (09:35)
[2020-05-17] MEDS: METOPROLOL TARTRATE 25 MG TABLET PO SCH (09:36)
[2020-05-17] MEDS: amLODIPine 5 MG TABLET PO SCH (09:36)
[2020-05-17] MEDS: FERROUS SULFATE 325 MG TABLET PO SCH (09:37)
[2020-05-17] MEDS: NICOTINE 21 MG/24 HR PATCH TRANSDERM SCH (09:37)
[2020-05-17] MEDS: ASPIRIN CHEW 81 MG TABLET PO SCH (09:37)
[2020-05-17] MEDS: DULoxetine 30 MG CAPSULE PO SCH (09:38)
[2020-05-17] MEDS: glipiZIDE 10 MG TABLET PO SCH ×2 (09:38→17:24)
[2020-05-17] MEDS: DOCUSATE SODIUM 100 MG CAPSULE PO SCH (09:39)
[2020-05-17] MEDS: PANTOPRAZOLE 40 MG TABLET PO SCH (09:39)
[2020-05-17] MEDS: ISOSORBIDE MONONITRATE 30 MG TABLET PO SCH (09:39)
[2020-05-17] MEDS: FUROSEMIDE 40 MG TABLET PO SCH (09:39)
[2020-05-17] MEDS: INSULIN REGULAR 100 UNIT/ML SUBCUT SCH ×4 (09:40→22:21)
[2020-05-17] MEDS: CHLORHEXIDINE 0.12% ORAL RINSE 60 ML BOTTLE SWISH/SPIT SCH ×2 (09:41→20:58)
[2020-05-17] MEDS: ZALEPLON 5 MG CAPSULE PO PRN (20:56)
[2020-05-17] MEDS: ATORVASTATIN 40 MG TABLET PO SCH (20:57)
[2020-05-17] MEDS: TAMSULOSIN 0.4 MG CAPSULE PO SCH (20:57)
[2020-05-17] MEDS: oxyCODONE/ACETAMINOPHEN 5-325 MG TABLET PO PRN (20:57)
[2020-05-18] MEDS: ALBUTEROL/IPRATROPIUM 3 ML NEB RESP TX SCH ×7 (01:16→23:05)
[2020-05-18 05:13] LABS: Basophils % 0.1 % (0.0-0.8); Eosinophils # 0.3 10*3/uL (0.0-0.87); Hematocrit 24.8 VOL% (42.0-52.0); Hemoglobin 7.9 GM/DL (14.0-18.0); Immature Granulocytes % 1.4 %; Immature Granulocytes Absolute 0.11 #; Lymphocytes # 0.6 10*3/uL (1.4-4.0); Lymphocytes % 6.9 % (21.2-54.2); Mean Corpuscular HGB Conc 31.9 GM/DL (32-36); Mean Corpuscular Volume 93.9 FL (87-102); Mean Platelet Volume 13.6 FL (9.6-12.0); Monocytes % 10.8 % (1.7-12.7); Neutrophils % 76.8 % (38.7-73.9); Platelet Count 120 T/CUMM (130-400); Red Blood Count 2.64 MC/CUMM (3.8-5.5); Red Cell Distribution Width 14.9 % (9.3-17.3)
[2020-05-18] MEDS: LEVOTHYROXINE 75 MCG TABLET PO SCH (05:46)
[2020-05-18] MEDS: ENOXAPARIN 40 MG/0.4 ML SYRINGE SUBCUT SCH ×2 (05:46→17:43)
[2020-05-18] MEDS: ACETAMINOPHEN 325 MG TABLET PO PRN (05:46)
[2020-05-18 05:55] LABS: Calcium 8.1 MG/DL (8.5-10.1); Osmolality,Calculated 305.5 MOS/KG (273-304)
[2020-05-18] MEDS ORDERED: SODIUM CHLORIDE 0.9% 1,000 ML IV PRN (07:22)
[2020-05-18] MEDS ORDERED: FUROSEMIDE 40 MG/4 ML VIAL IV ONE (07:24)
[2020-05-18] MEDS: amLODIPine 5 MG TABLET PO SCH (08:09)
[2020-05-18] MEDS: ASPIRIN CHEW 81 MG TABLET PO SCH (08:09)
[2020-05-18] MEDS: DULoxetine 30 MG CAPSULE PO SCH (08:09)
[2020-05-18] MEDS: METOPROLOL TARTRATE 25 MG TABLET PO SCH (08:10)
[2020-05-18] MEDS: glipiZIDE 10 MG TABLET PO SCH ×2 (08:10→17:09)
[2020-05-18] MEDS: FUROSEMIDE 40 MG TABLET PO SCH (08:10)
[2020-05-18] MEDS: FERROUS SULFATE 325 MG TABLET PO SCH (08:11)
[2020-05-18] MEDS: DOCUSATE SODIUM 100 MG CAPSULE PO SCH (08:11)
[2020-05-18] MEDS: NICOTINE 21 MG/24 HR PATCH TRANSDERM SCH (08:11)
[2020-05-18] MEDS: CHLORHEXIDINE 0.12% ORAL RINSE 60 ML BOTTLE SWISH/SPIT SCH ×2 (08:20→22:08)
[2020-05-18] MEDS: INSULIN REGULAR 100 UNIT/ML SUBCUT SCH ×4 (08:21→22:08)
[2020-05-18] MEDS: PANTOPRAZOLE 40 MG TABLET PO SCH (09:00)
[2020-05-18] MEDS: MAGNESIUM HYDROXIDE SUSP 30 ML UDCUP PO PRN (17:12)
[2020-05-18 22:06] LABS: Hematocrit 29.6 VOL% (42.0-52.0)
[2020-05-18 22:07] LABS: Hemoglobin 9.7 GM/DL (14.0-18.0)
[2020-05-18] MEDS: TAMSULOSIN 0.4 MG CAPSULE PO SCH (22:08)
[2020-05-18] MEDS: ATORVASTATIN 40 MG TABLET PO SCH (22:08)
[2020-05-18] MEDS: oxyCODONE/ACETAMINOPHEN 5-325 MG TABLET PO PRN (22:09)
[2020-05-18] MEDS: ZALEPLON 5 MG CAPSULE PO PRN (22:09)
[2020-05-19] MEDS: ALBUTEROL/IPRATROPIUM 3 ML NEB RESP TX SCH ×3 (02:06→10:44)
[2020-05-19] MEDS: ENOXAPARIN 40 MG/0.4 ML SYRINGE SUBCUT SCH (06:03)
[2020-05-19] MEDS: LEVOTHYROXINE 75 MCG TABLET PO SCH (06:03)
[2020-05-19 06:28] LABS: Basophils % 0.1 % (0.0-0.8); Eosinophils # 0.3 10*3/uL (0.0-0.87); Eosinophils % 2.8 % (0.00-10.9); Hematocrit 31.3 VOL% (42.0-52.0); Immature Granulocytes Absolute 0.12 #; Lymphocytes # 0.4 10*3/uL (1.4-4.0); Lymphocytes % 3.8 % (21.2-54.2); Mean Corpuscular HGB Conc 31.9 GM/DL (32-36); Mean Corpuscular Volume 91.8 FL (87-102); Mean Platelet Volume 13.3 FL (9.6-12.0); Monocytes % 7.8 % (1.7-12.7); Neutrophils % 84.5 % (38.7-73.9); Platelet Count 128 T/CUMM (130-400); Red Blood Count 3.41 MC/CUMM (3.8-5.5); Red Cell Distribution Width 16.3 % (9.3-17.3); White Blood Count 11.5 T/CUMM (4-12)
[2020-05-19 06:47] LABS: Eosinophils 5 % (0-10); Hypochromasia Slight; Lymphocytes 5 % (20-55); Microcytosis Slight; Segmented Neutrophils 85 % (50-85); Total Cells Counted 100
[2020-05-19 07:57] VITALS: BP 133/67
[2020-05-19] MEDS: NICOTINE 21 MG/24 HR PATCH TRANSDERM SCH (09:55)
[2020-05-19] MEDS: PANTOPRAZOLE 40 MG TABLET PO SCH (09:57)
[2020-05-19] MEDS: FERROUS SULFATE 325 MG TABLET PO SCH (09:57)
[2020-05-19] MEDS: ASPIRIN CHEW 81 MG TABLET PO SCH (09:57)
[2020-05-19] MEDS: DULoxetine 30 MG CAPSULE PO SCH (09:57)
[2020-05-19] MEDS: FUROSEMIDE 40 MG TABLET PO SCH (09:57)
[2020-05-19] MEDS: DOCUSATE SODIUM 100 MG CAPSULE PO SCH (09:57)
[2020-05-19] MEDS: amLODIPine 5 MG TABLET PO SCH (09:58)
[2020-05-19] MEDS: METOPROLOL TARTRATE 25 MG TABLET PO SCH (09:58)
[2020-05-19] MEDS: CHLORHEXIDINE 0.12% ORAL RINSE 60 ML BOTTLE SWISH/SPIT SCH (10:01)
[2020-05-19] MEDS: glipiZIDE 10 MG TABLET PO SCH (10:11)
[2020-05-19] MEDS: INSULIN REGULAR 100 UNIT/ML SUBCUT SCH (10:11)
== END 2020-05-19 12:48 | disposition home health service (06) | DRG 235 ==
LOC: N.4E 09:14 → N.CVR 04-28 12:49 → N.ICU 05-04 12:33 → N.TELES 05-07 19:17